=== PATIENT | female | born 1945 | race Caucasian/White ===

== ENCOUNTER → 2016-05-07 | Outpatient (CLI) | payer OTHER, BC ==
[~2016-05-07] MED LIST: BUDESUS NAE; DICL1GEL28 TOP; FLEC100T21 PO; LORA0.5T12 PO; METO1TAB31 PO; PRLSR20 PO; WARF5TAB7 PO
== END | disposition home or self-care (01) ==
LOC: C.MAMM 11:30
PROVIDERS: ATTEND Family Medicine
DX: Z00.00 Encounter for general adult medical examination without abnormal findings (principal); M85.88 Other specified disorders of bone density and structure, other site

== ENCOUNTER → 2016-09-30 | Outpatient (CLI) | payer OTHER, BC ==
[~2016-09-30] MED LIST changes: +APIX1TAB3 PO; +CLB200 PO; +IBUP-1050 PO; +METO-478 PO; -METO1TAB31 PO; +MIRT15TA2 PO; +ONDA8TAB6 PO; +RXC5 PO
--- NOTE | 2016-09-30 10:35 | DIAGNOSTIC IMAGING REPORT ---
THYROID ULTRASOUND HISTORY: NON TOXIC MULTI NODULAR GOITER COMPARISON: Thyroid ultrasound 03/30/2014. FINDINGS: Right lobe: 5.1 x 2.4 x 2.3 cm. There is a 1.7 x 1.3 x 1.1 cm heterogeneous nodule within the interpolar region. This is similar to the prior study. There is also stable 1.1 cm hyperechoic nodule within the lower pole. Left lobe: 6.9 x 5.3 x 3.8 cm. Dominant solid and cystic nodule measures 5.1 x 5.1 x 4.0 cm. Given differences in measuring technique this appears to be similar in size compared to the prior study. There are 2 additional subcentimeter nodules within the upper pole measuring up to 9 mm. Isthmus: 5 mm in thickness. No nodules. IMPRESSION: Multinodular thyroid gland with the dominant nodule within the left thyroid lobe measuring 5.1 cm. These are not significantly changed compared to the 2013 examination. Electronically signed by: Zhou García M.D. 09/30/2016 10:33 AM Dictated Date/Time: 09/30/2016 10:30 AM
== END | disposition home or self-care (01) ==
LOC: C.ULTR 09:23
PROVIDERS: ATTEND Family Medicine
DX: E04.2 Nontoxic multinodular goiter (principal)

== ENCOUNTER → 2017-11-16 | Outpatient (CLI) | payer OTHER, BC ==
[~2017-11-16] MED LIST changes: -BUDESUS NAE; -DICL1GEL28 TOP; -IBUP-1050 PO; -LORA0.5T12 PO; -ONDA8TAB6 PO; -WARF5TAB7 PO
[2017-11-16 10:47] LABS: ALBUMIN 3.7 gm/dl (3.4-5.0); ALKALINE PHOSPHATASE 50 U/L (45-117); ALT/SGPT 19 U/L (12-78); AST/SGOT 16 U/L (15-37); BLOOD UREA NITROGEN 23 mg/dl (7-18); CALCIUM 8.7 mg/dl (8.5-10.1); CARBON DIOXIDE 27 mmol/L (21-32); CREATININE 0.76 mg/dl (0.60-1.20); GLUCOSE 101 mg/dl (70-99); POTASSIUM 4.2 mmol/L (3.5-5.1); SODIUM 140 mmol/L (136-145); TOTAL PROTEIN 6.3 gm/dl (6.4-8.2)
[2017-11-16 10:49] LABS: HEMATOCRIT 42.5 % (37-47); HEMOGLOBIN 14.4 g/dL (12.0-16.0); MEAN CELL VOLUME 99.1 fL (80-100); MEAN CORPUSCULAR HEMOGLOBIN 33.6 pg (25-34); MEAN CORPUSCULAR HGB CONC 33.9 g/dl (32-36); RED CELL DISTRIBUTION WIDTH CV 13.4 % (11.5-14.5); WHITE BLOOD COUNT 3.86 K/uL (4.8-10.8)
[2017-11-16 10:55] LABS: PLATELET COUNT 107 K/uL (130-400)
[2017-11-16 11:07] LABS: BASO % 0.5 %; BASO ABS # 0.02 K/uL (0-0.2); EOS % 1.6 %; EOS ABS # 0.06 K/uL (0-0.5); IG# 0.01 K/uL (0.00-0.02); LYMPH % 24.4 %; LYMPH ABS # 0.94 K/uL (1.2-3.4); MONO ABS # 0.27 K/uL (0.11-0.59); NEUT % 66.2 %; NEUT ABS # 2.56 K/uL (1.4-6.5)
== END | disposition home or self-care (01) ==
LOC: C.LABBC 07:36
PROVIDERS: ATTEND Internal Medicine
DX: Z00.00 Encounter for general adult medical examination without abnormal findings (principal); G47.00 Insomnia, unspecified; K21.0 Gastro-esophageal reflux disease with esophagitis; I48.91 Unspecified atrial fibrillation; I48.92 Unspecified atrial flutter; D69.6 Thrombocytopenia, unspecified

== ENCOUNTER 2024-05-06 11:46 | Observation (INO) ==
--- NOTE | 2024-05-06 12:06 | Emergency Department Note ---
Impression & Plan Stroke-like symptom, Facial droop ED Provider Note NAME: JIMI PATRICK AGE: 79 SEX: F : 1945 ARRIVES VIA: Walk-In INFORMANT: Patient, ED PROVIDER(S): Romel Kraft DO CHIEF COMPLAINT: Strokelike symptoms HPI: The patient is an 79-year-old female who does of a history of atrial fibrillation and takes Eliquis who presented to the emergency department for strokelike symptoms. The patient was last known well yesterday. The patient presented with her daughter who does help with the history. The patient states she has been having some problems with back pain. She did have a fall recently around [place]. She was seen in our facility. She struck her head but also had some musculoskeletal injuries that she was following up with Ortho for. The patient denies having any nausea or vomiting. She denies having any chest pain but does complain of some headache especially on the right side. The patient has been compliant with her outpatient medications. ROS: See above HPI for pertinent positives & negatives. A total of 10 systems reviewed and were otherwise negative. PAST MEDICAL HISTORY: See Below PAST SURGICAL HISTORY: See Below FAMILY HISTORY: See Below SOCIAL HISTORY: See Below HOME MEDICATIONS: See Below ALLERGIES: See Below VITALS: See Below PHYSICAL EXAMINATION: GENERAL: Patient is awake alert in no acute distress patient is resting comfortably and showing no signs of anxiety EYES: The conjunctivae are clear. The pupils are round and reactive. EARS, NOSE, MOUTH AND THROAT: The nose is without any evidence of any deformity. NECK: The neck is nontender and supple. RESPIRATORY: Normal respiratory effort is noted there is no evidence of wheezing rhonchi or rales CARDIOVASCULAR: Regular rate and rhythm noted there no murmurs rubs or gallops normal S1 normal S2. GASTROINTESTINAL: The abdomen is soft. Abdomen is nontender. MUSCULOSKELETAL/EXTREMITIES: There is no evidence of gross deformity full range of motion is noted in the hips and shoulders. SKIN: The skin is warm and dry. Trace pedal edema was noted bilaterally. NEUROLOGIC: Patient is awake alert and oriented x3 there is a right-sided facial droop with forehead sparing. Security Clerk strength was symmetric. The patient is able to hold each leg off the bed for greater than 5 seconds. MEDICAL DECISION MAKING: The patient is an 79-year-old female who presented to the emergency department for an evaluation of strokelike symptoms. The patient's daughter brought her to the emergency department after noticing she seemed to be off as well as had a new right sided facial droop. The patient was awake and alert for my evaluation. She did have some periods where she seems a little bit confused but ultimately appeared neurologically intact with the exception of a right-sided facial droop with forehead involvement. Given the patient's age and past medical history further laboratory and radiographic studies were obtained. No obvious large vessel occlusion or abnormality on plain CT was noted that would explain the patient's symptoms. Given that she has forehead sparing I [facility] She would likely require inpatient workup and further evaluation to determine the cause of the symptoms. Certainly if she went on to have a full facial droop with forehead involvement this could explain the presentation and could be more related to a Mccloud's palsy. Triage Nursing notes reviewed. Prior medical records reviewed Vital Signs: reviewed and remarkable for no significant abnormalities Differential diagnosis: Infection, dehydration, metabolic abnormality, hypo/hyperglycemia, electrolyte disturbance, anemia, hypoxia, cardiac sources, intracerebral event, toxicologic, neurologic, as well as other pathologies. ER treatment provided: See below Diagnostics interpreted by me: ECG: EKG was obtained in the emergency department. My interpretation is sinus rhythm at 88 bpm. First-degree AV block was noted. Nonspecific ST depressions were noted. This was compared to a tracing from January 21, 2024. No changes were noted. Cardiac Monitoring: An order was placed for continuous cardiac monitoring. The monitor shows a rate of 82 bpm with sinus rhythm. Laboratory studies: As stated above and show below. Imaging studies: See below. Radiographic imaging was reviewed by myself Consultation(s): Dr. Bravo [facility] the patient. Past Med/Surg History Problem List (Updated 05/06/24 @ 17:46 by Romel Kraft DO) Facial droop (Acute) Stroke-like symptom (Acute) Recurrent falls Elevated bilirubin Stroke-like symptoms Fracture of metatarsal of right foot, closed (Acute) Fracture of triquetral bone of right wrist (Acute) Hypertrophic toenail Bilateral ankle pain Grief reaction Anxiety Painter disease Hypertension Vitamin D deficiency Insomnia Thrombocytopenia Enlarged thyroid Thyroid Nodule PAF (paroxysmal atrial fibrillation) Diastolic dysfunction Degenerative arthritis of right knee Surgical History History of repair of rotator cuff History of knee replacement History of foot surgery History of cataract surgery Family History Father Myocardial infarction Mother Alcohol abuse Father Cardiac disorder Myocardial infarction Family/Other Breast cancer Heart disease Denies family history of Ovarian cancer Prostate cancer Colorectal cancer Social History Smoking Status: Former smoker Tobacco Type: Cigarettes Age Started Using Tobacco: 15; Age Quit Using Tobacco: 35; packs per day: 0.5; Cigarettes Per Day: 10; Second Hand Exposure: No; Do You Dip or Chew Tobacco: No; Hx Alcohol Use: Yes Alcohol Intake Frequency: 4 or More x per/Week Hx Substance Use: No Preferred Language: Cypriot Visual Impairment: No Limitations Hearing Ability: Normal marital status: / Current Living Situation: Alone Current Living Situation Comment: [place] current occupational status: retired current occupation: was a homemaker Feels Safe at Home: Yes Childhood Exposure to Second-Hand Smoke: Yes Diet: regular Dental Care, Regularly: Yes Physical Activity Frequency: Does not Exercise Seatbelt Use: always Sunscreen Use: Yes Allergies Allergies Allergy/AdvReac Type Severity Reaction Status Date / Time Penicillins Allergy Mild HIVES Verified 02/01/24 11:08 Home Meds Home Medications Medication Instructions Recorded Confirmed cholecalciferol (vitamin D3) 50 2,000 unit PO DAILY 05/23/20 05/06/24 mcg (2,000 unit) capsule lorazepam 0.5 mg tablet 0.5 mg PO DAILY PRN anxiety 01/06/24 05/06/24 flecainide 100 mg tablet 100 mg PO BID 05/06/24 05/06/24 metoprolol succinate 25 mg 12.5 mg PO UD 05/06/24 05/06/24 tablet,extended release 24 hr (Toprol XL) oxycodone-acetaminophen 5 mg-325 1 tab PO UD PRN pain 05/06/24 05/06/24 mg tablet (Percocet) sertraline 25 mg tablet 25 mg PO DAILY 05/06/24 05/06/24 Previous Rx's Medication Instructions Recorded omeprazole 20 mg capsule,delayed 20 mg PO DAILY #90 caps 11/06/20 release apixaban 5 mg tablet (Eliquis) 5 mg PO BID #180 tabs 05/25/22 Results & Data (ED) Vital Signs Vital Signs - 24 hr 05/06/24 11:52 05/06/24 12:19 05/06/24 12:55 Pulse Rate 92 H 83 Pulse Rate from SpO2 Sensor Pulse Strength Normal Respiratory Rate 16 Respiratory Effort / Characteristics Non-Labored Spontaneous Respiratory Depth Normal Respiratory Pattern Regular Blood Pressure 182/82 H Blood Pressure Mean 95 Blood Pressure Position Sitting Pulse Oximetry 99 Oxygen Delivery Method Room Air Sepsis Recent Fever Within 48 Hours No Sepsis New/Unexplained Change in Mental Status No Sepsis Action Taken by Nursing No Action Required 05/06/24 13:00 05/06/24 13:03 05/06/24 13:03 Pulse Rate 81 87 Pulse Rate from SpO2 Sensor 81 Pulse Strength Respiratory Rate 20 19 Respiratory Effort / Characteristics Respiratory Depth Respiratory Pattern Blood Pressure 146/74 H Blood Pressure Mean 106 Blood Pressure Position Pulse Oximetry 98 Oxygen Delivery Method Sepsis Recent Fever Within 48 Hours Sepsis New/Unexplained Change in Mental Status Sepsis Action Taken by Nursing 05/06/24 13:30 05/06/24 13:30 Pulse Rate 82 Pulse Rate from SpO2 Sensor 83 Pulse Strength Respiratory Rate 14 Respiratory Effort / Characteristics Respiratory Depth Respiratory Pattern Blood Pressure 131/80 Blood Pressure Mean 99 Blood Pressure Position Pulse Oximetry 97 Oxygen Delivery Method Sepsis Recent Fever Within 48 Hours Sepsis New/Unexplained Change in Mental Status Sepsis Action Taken by [facility] Medications Current Medication List: was personally reviewed by me Laboratory Data Attestation: I reviewed the patient's lab results. 05/06/24 12:05 05/06/24 12:05 Lab Results 05/06/24 05/06/24 05/06/24 Range/Units 12:01 12:05 12:09 WBC 8.27 (4.8-10.8) K/ul RBC 4.53 (4.20-5.40) M/uL Hgb 14.3 (12.0-16.0) g/dl POC Hgb 14.3 (12.0-16.0) g/dl Hct 42.2 (37.0-47.0) % POC Hct 42 (37-47) % MCV 93.2 (80.0-100.0) fL MCH 31.6 (25.0-34.0) pg MCHC 33.9 (32.0-36.0) g/dL RDW Std Deviation 44.4 (36.4-46.3) fL RDW Coeff of Karla 13.0 (11.5-14.5) % Plt Count 160 (130-400) K/uL MPV 11.8 (9.4-12.4) fL Immature Gran % (Auto) 0.4 % Neut % (Auto) 77.6 % Lymph % (Auto) 11.9 % [place] % (Auto) 9.3 % Eos % (Auto) 0.6 % Baso % (Auto) 0.2 % Neut # (Auto) 6.42 (1.40-6.50) K/uL Lymph # (Auto) 0.98 L (1.20-3.40) K/uL [place] # (Auto) 0.77 H (0.11-0.59) K/uL Eos # (Auto) 0.05 (0.00-0.50) K/uL Baso # (Auto) 0.02 (0.00-0.20) K/uL Immature Gran # (Auto) 0.03 (0.01-0.20) K/uL PT 11.0 (9.0-12.0) Seconds INR 1.0 (0.9-1.1) APTT 30 (21-31) Seconds PTT Ratio 1.1 POC Sodium 140 (135-144) mmol/L Sodium 138 (136-145) mmol/L POC Potassium 3.8 (3.3-5.0) mmol/L Potassium 3.8 (3.5-5.1) mmol/L POC Chloride 103 (101-112) mmol/L Chloride 104 (98-107) mmol/L Carbon Dioxide 26 (21-32) mmol/L POC Total CO2 23 L (24-31) mmol/L Anion Gap 8 (3-11) POC Anion Gap 19.0 (16-25) mmol/L POC BUN 19 H (7-18) mg/dl BUN 19 (6-23) mg/dl Creatinine 0.69 (0.6-1.2) mg/dl POC Creatinine 0.8 (0.6-1.3) mg/dl Est Cr Clr Drug Dosing 61.8 ml/min eGFR 87.68 BUN/Creatinine Ratio 27.5 H (10-20) Glucose 95 (70-99(Fasting)) mg/dl POC Glucose 87 (70-99) mg/dl POC Glucose (other) 94 (70-99) mg/dl Calcium 9.8 (8.6-10.3) mg/dl POC Ioniz Calcium Michael 1.19 (1.12-1.32) mmol/l Magnesium 1.9 (1.7-2.4) mg/dl Total Bilirubin 3.2 H (0.2-1.0) mg/dl AST 11 L (13-39) U/L ALT 7 (7-52) U/L Alkaline Phosphatase 152 H (34-104) U/L Troponin I High Sens 4.3 (0-14) pg/ml Total Protein 6.6 (6.0-8.3) gm/dl Albumin 4.4 (3.4-5.0) gm/dl Globulin 2.2 L (2.5-4.0) gm/dl Albumin/Globulin Ratio 2.0 (0.9-2) Administered Medications Discontinued Medications Ioversol (Optiray 320 125ml) 112 ml IV ONCE ONE Stop: 05/06/24 12:45 Last Admin: 05/06/24 12:44 Dose: 112 ml Documented By: CHICO Lorazepam (Lorazepam 2 Mg/1 Ml Vial) 0.5 mg IV ONE PRN PRN Reason: Pre-MRI anxiety Last Admin: 05/06/24 15:34 Dose: 0.5 mg Documented By: TISH Imaging Data Attestation: I personally reviewed and interpreted this imaging study as follows: My Impression: CT of the brain was obtained in the emergency department. My interpretation is no intracranial hemorrhage or mass effect, final report below. 1 view chest x-ray was obtained in the emergency department. My interpretation is no free air or definite filtrate, final report below Radiologist's Impression: Chest X-Ray 05/06/24 12:04 EXAM: Radiograph of the Chest 1 View INDICATION: Stroke symptoms. TECHNIQUE: Frontal view of the chest. COMPARISON: 02/02/2017 and 01/21/2024 FINDINGS: Lungs and pleural spaces: No consolidation or pulmonary edema. No pleural effusion or pneumothorax. Heart: Stable prominent cardiac shadow accentuated by technique. Mediastinum: Normal contour. Bones/joints: Degenerative changes noted throughout the spine and both shoulders. No lytic or blastic lesions noted. Soft tissues: No abnormality noted. No radiopaque foreign body noted. Vasculature: Stable ectatic aorta. Upper abdomen: No abnormality noted. IMPRESSION: No acute cardiopulmonary disease. ACT 112: Negative or not required by law. Electronically signed by Polina Mustafa 05-06-2024 12:[address] 05/06/24 12:04 EXAM: CT Head Without Intravenous Contrast INDICATION: Unspecified neurologic deficit TECHNIQUE: Axial computed tomography images of the head/brain without intravenous contrast. Sagittal and/or coronal reformats are provided. Sagittal and coronal reformatted images were created and reviewed. This CT exam was performed using one or more of the following dose reduction techniques: automated exposure control, adjustment of the mA and/or kV according to patient size, and/or use of iterative reconstruction technique. COMPARISON: 04/09/2024 FINDINGS: Limitations: None. Brain and extra-axial spaces: There is age appropriate cortical atrophy and chronic ischemic periventricular white matter hypodensity. No acute infarct, hemorrhage or mass noted. Bones/joints: No acute changes. Soft tissues: No significant abnormality noted. Vasculature: No acute abnormality noted. Sinuses: There is mild chronic mucosal thickening of the right maxillary and sphenoid sinuses. No sinus fluid. Mastoid air cells: No mastoid effusion. Orbits: No significant abnormality noted. IMPRESSION: Cerebral atrophy. No acute changes. ACT 112: Negative or not required by law. Electronically signed by Polina Mustafa 05-06-2024 13:11 PM Head CTA 05/06/24 12:04 EXAM: CT Angiography Head and Neck With Intravenous Contrast INDICATION: Specified neurologic deficit TECHNIQUE: [facility] [place]/head and neck CT angiography protocol performed with intravenous contrast. Sagittal and coronal reformatted images were created and reviewed. This CT exam was performed using one or more of the following dose reduction techniques: automated exposure control, adjustment of the mA and/or kV according to patient size, and/or use of iterative reconstruction technique. MIP reconstructed images were created and reviewed. CONTRAST: 112ml of Optiray 320 was administered intravenously. COMPARISON: None. FINDINGS: HEAD: Right anterior cerebral artery: No abnormality noted. No occlusion or significant stenosis. Anterior communicating artery is present. No aneurysm. Right middle cerebral artery: No abnormality noted. No occlusion or significant stenosis. No aneurysm. Right posterior cerebral artery: No abnormality noted. No occlusion or significant stenosis. No aneurysm. Right intracranial internal carotid artery: No abnormality noted. No significant stenosis. No dissection or occlusion. Right intracranial vertebral artery: No abnormality noted. No significant stenosis. No dissection or occlusion. Left anterior cerebral artery: No abnormality noted. No occlusion or significant stenosis. No aneurysm. Left middle cerebral artery: No abnormality noted. No occlusion or significant stenosis. No aneurysm. Left posterior cerebral artery: No abnormality noted. No occlusion or significant stenosis. No aneurysm. Left intracranial internal carotid artery: No abnormality noted. No significant stenosis. No dissection or occlusion. Left intracranial vertebral artery: No abnormality noted. No significant stenosis. No dissection or occlusion. Basilar artery: No abnormality noted. No occlusion or significant stenosis. No aneurysm. Other vasculature: Patent dural venous sinuses. No vascular malformation. NECK: Right common carotid artery: No abnormality noted. No significant stenosis. No dissection or occlusion. Right extracranial internal carotid artery: No abnormality noted. No significant stenosis. No dissection or occlusion. Right external carotid artery: No abnormality noted. No occlusion. Right extracranial vertebral artery: No abnormality noted. No significant stenosis. No dissection or occlusion. Left common carotid artery: No abnormality noted. No significant stenosis. No dissection or occlusion. Left extracranial internal carotid artery: Minimal calcific plaque at the bulb. No significant stenosis. No dissection or occlusion. Left external carotid artery: No abnormality noted. No occlusion. Left extracranial vertebral artery: No abnormality noted. No significant stenosis. No dissection or occlusion. Trachea: The trachea is significantly shifted to the right and is patent. Thyroid: There is a large substernal left thyroid mass measuring 5.0 x 5.1 x 5.4 cm. Smaller bilateral thyroid nodules present. Lung apices: No significant abnormality noted. HEAD and NECK: Bones/joints: Degenerative changes noted throughout the spine. No acute osseous abnormality seen. Soft tissues: No abnormality noted. CAROTID STENOSIS REFERENCE USING NASCET CRITERIA: % ICA stenosis = (1 - narrowest ICA diameter/diameter of distal cervical ICA) x 100. Mild - <50% stenosis. Moderate - 50-69% stenosis. Severe - 70-94% stenosis. Near occlusion - 95-99% stenosis. Occluded - 100% stenosis. IMPRESSION: 1. No significant angiographic abnormality in the head or neck. 2. Multinodular thyroid with a dominant 5.4 cm left thyroid mass significantly deviating the trachea to the right. ACT 112: Negative or not required by law. Electronically signed by Polina Mustafa 05-06-2024 13:11 PM Neck CTA 05/06/24 12:04 EXAM: CT Angiography Head and Neck With Intravenous Contrast INDICATION: Specified neurologic deficit TECHNIQUE: [facility] [place]/head and neck CT angiography protocol performed with intravenous contrast. Sagittal and coronal reformatted images were created and reviewed. This CT exam was performed using one or more of the following dose reduction techniques: automated exposure control, adjustment of the mA and/or kV according to patient size, and/or use of iterative reconstruction technique. MIP reconstructed images were created and reviewed. CONTRAST: 112ml of Optiray 320 was administered intravenously. COMPARISON: None. FINDINGS: HEAD: Right anterior cerebral artery: No abnormality noted. No occlusion or significant stenosis. Anterior communicating artery is present. No aneurysm. Right middle cerebral artery: No abnormality noted. No occlusion or significant stenosis. No aneurysm. Right posterior cerebral artery: No abnormality noted. No occlusion or significant stenosis. No aneurysm. Right intracranial internal carotid artery: No abnormality noted. No significant stenosis. No dissection or occlusion. Right intracranial vertebral artery: No abnormality noted. No significant stenosis. No dissection or occlusion. Left anterior cerebral artery: No abnormality noted. No occlusion or significant stenosis. No aneurysm. Left middle cerebral artery: No abnormality noted. No occlusion or significant stenosis. No aneurysm. Left posterior cerebral artery: No abnormality noted. No occlusion or significant stenosis. No aneurysm. Left intracranial internal carotid artery: No abnormality noted. No significant stenosis. No dissection or occlusion. Left intracranial vertebral artery: No abnormality noted. No significant stenosis. No dissection or occlusion. Basilar artery: No abnormality noted. No occlusion or significant stenosis. No aneurysm. Other vasculature: Patent dural venous sinuses. No vascular malformation. NECK: Right common carotid artery: No abnormality noted. No significant stenosis. No dissection or occlusion. Right extracranial internal carotid artery: No abnormality noted. No significant stenosis. No dissection or occlusion. Right external carotid artery: No abnormality noted. No occlusion. Right extracranial vertebral artery: No abnormality noted. No significant stenosis. No dissection or occlusion. Left common carotid artery: No abnormality noted. No significant stenosis. No dissection or occlusion. Left extracranial internal carotid artery: Minimal calcific plaque at the bulb. No significant stenosis. No dissection or occlusion. Left external carotid artery: No abnormality noted. No occlusion. Left extracranial vertebral artery: No abnormality noted. No significant stenosis. No dissection or occlusion. Trachea: The trachea is significantly shifted to the right and is patent. Thyroid: There is a large substernal left thyroid mass measuring 5.0 x 5.1 x 5.4 cm. Smaller bilateral thyroid nodules present. Lung apices: No significant abnormality noted. HEAD and NECK: Bones/joints: Degenerative changes noted throughout the spine. No acute osseous abnormality seen. Soft tissues: No abnormality noted. CAROTID STENOSIS REFERENCE USING NASCET CRITERIA: % ICA stenosis = (1 - narrowest ICA diameter/diameter of distal cervical ICA) x 100. Mild - <50% stenosis. Moderate - 50-69% stenosis. Severe - 70-94% stenosis. Near occlusion - 95-99% stenosis. Occluded - 100% stenosis. IMPRESSION: 1. No significant angiographic abnormality in the head or neck. 2. Multinodular thyroid with a dominant 5.4 cm left thyroid mass significantly deviating the trachea to the right. ACT 112: Negative or not required by law. Electronically signed by Polina Mustafa 05-06-2024 13:11 PM Brain MRI 05/06/24 14:38 MRI of the brain performed without IV contrast History: Confusion Comparison: Same-day CTA Technique: Sagittal T1-weighted and axial T2-weighted, T2/FLAIR and diffusion-weighted with ADC map images of the brain were obtained without IV contrast. Findings: No evidence for intracranial mass lesion, mass-effect, midline shift, or abnormal extra-axial fluid collection. Moderate to marked generalized cerebral atrophy. Minimal high signal intensity foci in the white matter on T2/FLAIR consistent with chronic small vessel ischemic disease. No abnormally reduced diffusion or evidence for acute infarct. Normal intravascular flow voids. Bilateral pseudophakia. Small fluid in the right mastoid air cells. Impression: Age-related changes without acute intracranial pathology Electronically signed by Ranulfo Casas 05-06-2024 4:52 PM Discharge Plan Visit Data Chief Complaint: TIA Symptoms Stated Complaint: CONFUSION, LOW BACK PAIN, NUMBNESS IN FINGERS ED Provider: Romel Kraft Discharge Problem: Stroke-like symptom, Facial droop Patient Disposition: Admitted As Inpatient Discharge Instructions Interventions: ED Discharge Assessment Last Done: 05/06/24 15:22
[2024-05-06 12:20] LABS: iSTAT Creatinine 0.8 mg/dl (0.6-1.3); iSTAT Hemoglobin 14.3 g/dl (12.0-16.0); iSTAT Ionized Calcium 1.19 mmol/l (1.12-1.32); iSTAT Potassium 3.8 mmol/L (3.3-5.0)
[2024-05-06 12:25] LABS: Basophils # (auto) 0.02 K/uL (0.00-0.20); Basophils % (auto) 0.2 %; Eosinophils # (auto) 0.05 K/uL (0.00-0.50); Eosinophils % (auto) 0.6 %; Hematocrit (blood only) 42.2 % (37.0-47.0); Hemoglobin 14.3 g/dl (12.0-16.0); Immature Granulocytes # (auto) 0.03 K/uL (0.01-0.20); Immature Granulocytes % (auto) 0.4 %; Lymphocytes # (auto) 0.98 K/uL (1.20-3.40); Lymphocytes % (auto) 11.9 %; Mean Corpuscular Hemoglobin 31.6 pg (25.0-34.0); Mean Corpuscular Hgb Conc 33.9 g/dL (32.0-36.0); Mean Corpuscular Volume 93.2 fL (80.0-100.0); Mean Platelet Volume 11.8 fL (9.4-12.4); Monocytes # (auto) 0.77 K/uL (0.11-0.59); Monocytes % (auto) 9.3 %; Neutrophils # (auto) 6.42 K/uL (1.40-6.50); Neutrophils % (auto) 77.6 %; Platelet Count 160 K/uL (130-400); RDW Standard Deviation 44.4 fL (36.4-46.3); Red Blood Count 4.53 M/uL (4.20-5.40); White Blood Count 8.27 K/ul (4.8-10.8)
--- NOTE | 2024-05-06 12:37 | XRay Report ---
EXAM: Radiograph of the Chest 1 View INDICATION: Stroke symptoms. TECHNIQUE: Frontal view of the chest. COMPARISON: 02/02/2017 and 01/21/2024 FINDINGS: Lungs and pleural spaces: No consolidation or pulmonary edema. No pleural effusion or pneumothorax. Heart: Stable prominent cardiac shadow accentuated by technique. Mediastinum: Normal contour. Bones/joints: Degenerative changes noted throughout the spine and both shoulders. No lytic or blastic lesions noted. Soft tissues: No abnormality noted. No radiopaque foreign body noted. Vasculature: Stable ectatic aorta. Upper abdomen: No abnormality noted. IMPRESSION: No acute cardiopulmonary disease. ACT 112: Negative or not required by law. Electronically signed by Polina Mustafa 05-06-2024 12:36 PM
[2024-05-06 12:43] LABS: Albumin Level 4.4 gm/dl (3.4-5.0); BUN Creatinine Ratio 27.5 (10-20); Bilirubin,Total 3.2 mg/dl (0.2-1.0); Calcium 9.8 mg/dl (8.6-10.3); Creatinine Clr Calc Pharmacy 61.8 ml/min; Globulin 2.2 gm/dl (2.5-4.0); Magnesium 1.9 mg/dl (1.7-2.4); Potassium 3.8 mmol/L (3.5-5.1); Total Protein 6.6 gm/dl (6.0-8.3)
[2024-05-06] MEDS: OPTIRAY 320 125ml IV ONE (12:44)
[2024-05-06 12:49] LABS: Troponin I High Sensitivity 4.3 pg/ml (0-14)
[2024-05-06 12:54] LABS: Partial Thromboplastin Ratio 1.1; Partial Thromboplastin Time 30 Seconds (21-31)
--- NOTE | 2024-05-06 13:12 | CT Scan Report ---
EXAM: CT Angiography Head and Neck With Intravenous Contrast INDICATION: Specified neurologic deficit TECHNIQUE: [facility]/head and neck CT angiography protocol performed with intravenous contrast. Sagittal and coronal reformatted images were created and reviewed. This CT exam was performed using one or more of the following dose reduction techniques: automated exposure control, adjustment of the mA and/or kV according to patient size, and/or use of iterative reconstruction technique. MIP reconstructed images were created and reviewed. CONTRAST: 112ml of Optiray 320 was administered intravenously. COMPARISON: None. FINDINGS: HEAD: Right anterior cerebral artery: No abnormality noted. No occlusion or significant stenosis. Anterior communicating artery is present. No aneurysm. Right middle cerebral artery: No abnormality noted. No occlusion or significant stenosis. No aneurysm. Right posterior cerebral artery: No abnormality noted. No occlusion or significant stenosis. No aneurysm. Right intracranial internal carotid artery: No abnormality noted. No significant stenosis. No dissection or occlusion. Right intracranial vertebral artery: No abnormality noted. No significant stenosis. No dissection or occlusion. Left anterior cerebral artery: No abnormality noted. No occlusion or significant stenosis. No aneurysm. Left middle cerebral artery: No abnormality noted. No occlusion or significant stenosis. No aneurysm. Left posterior cerebral artery: No abnormality noted. No occlusion or significant stenosis. No aneurysm. Left intracranial internal carotid artery: No abnormality noted. No significant stenosis. No dissection or occlusion. Left intracranial vertebral artery: No abnormality noted. No significant stenosis. No dissection or occlusion. Basilar artery: No abnormality noted. No occlusion or significant stenosis. No aneurysm. Other vasculature: Patent dural venous sinuses. No vascular malformation. NECK: Right common carotid artery: No abnormality noted. No significant stenosis. No dissection or occlusion. Right extracranial internal carotid artery: No abnormality noted. No significant stenosis. No dissection or occlusion. Right external carotid artery: No abnormality noted. No occlusion. Right extracranial vertebral artery: No abnormality noted. No significant stenosis. No dissection or occlusion. Left common carotid artery: No abnormality noted. No significant stenosis. No dissection or occlusion. Left extracranial internal carotid artery: Minimal calcific plaque at the bulb. No significant stenosis. No dissection or occlusion. Left external carotid artery: No abnormality noted. No occlusion. Left extracranial vertebral artery: No abnormality noted. No significant stenosis. No dissection or occlusion. Trachea: The trachea is significantly shifted to the right and is patent. Thyroid: There is a large substernal left thyroid mass measuring 5.0 x 5.1 x 5.4 cm. Smaller bilateral thyroid nodules present. Lung apices: No significant abnormality noted. HEAD and NECK: Bones/joints: Degenerative changes noted throughout the spine. No acute osseous abnormality seen. Soft tissues: No abnormality noted. CAROTID STENOSIS REFERENCE USING NASCET CRITERIA: % ICA stenosis = (1 - narrowest ICA diameter/diameter of distal cervical ICA) x 100. Mild - <50% stenosis. Moderate - 50-69% stenosis. Severe - 70-94% stenosis. Near occlusion - 95-99% stenosis. Occluded - 100% stenosis. IMPRESSION: 1. No significant angiographic abnormality in the head or neck. 2. Multinodular thyroid with a dominant 5.4 cm left thyroid mass significantly deviating the trachea to the right. ACT 112: Negative or not required by law. Electronically signed by Polina Mustafa 05-06-2024 13:11 PM
--- NOTE | 2024-05-06 13:12 | CT Scan Report ---
EXAM: CT Head Without Intravenous Contrast INDICATION: Unspecified neurologic deficit TECHNIQUE: Axial computed tomography images of the head/brain without intravenous contrast. Sagittal and/or coronal reformats are provided. Sagittal and coronal reformatted images were created and reviewed. This CT exam was performed using one or more of the following dose reduction techniques: automated exposure control, adjustment of the mA and/or kV according to patient size, and/or use of iterative reconstruction technique. COMPARISON: 04/09/2024 FINDINGS: Limitations: None. Brain and extra-axial spaces: There is age appropriate cortical atrophy and chronic ischemic periventricular white matter hypodensity. No acute infarct, hemorrhage or mass noted. Bones/joints: No acute changes. Soft tissues: No significant abnormality noted. Vasculature: No acute abnormality noted. Sinuses: There is mild chronic mucosal thickening of the right maxillary and sphenoid sinuses. No sinus fluid. Mastoid air cells: No mastoid effusion. Orbits: No significant abnormality noted. IMPRESSION: Cerebral atrophy. No acute changes. ACT 112: Negative or not required by law. Electronically signed by Polina Mustafa 05-06-2024 13:11 PM
--- NOTE | 2024-05-06 13:48 | History & Physical Report ---
Date of Service May 06, 2024 Assessment & Plan (1) Stroke-like symptoms: Plan: Misty is an 79-year-old female with PMH of HTN, Gilbert's disease, thrombocytopenia, and paroxysmal atrial fibrillation (on Eliquis). She presented on 05/06 for extreme confusion upon waking around 0830. Patient's daughter (Cindy) is at bedside and confirms that this was an acute change from her cognitive baseline. Patient + patient's daughter report acute confusion, incoherent thought processes, and word finding difficulty upon waking the morning of 05/06 No prior history of TIA/CVA Independent living at [facility] Unclear last known well; ? 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 pending dysphagia screen Neurochecks q4h Speech therapy consult appreciated Neurology consult pending brain MRI A.m. CBC, CMP, A1c, fasting lipid panel (2) Hypertension: Plan: Permissive hypertension in the setting of strokelike symptoms Labetalol 5 mg IV on-call for SBP >220 or DBP >120 (3) PAF (paroxysmal atrial fibrillation): Plan: Rate controlled Plan to restart metoprolol on the morning of 05/07 Continue flecainide Hold Eliquis pending brain MRI (4) Elevated bilirubin: Plan: Patient reports that this is chronically elevated; elevated bilirubin at 3.2 Trend CMP (5) Recurrent falls: Plan: Most recent fall on 04/09/2024; on Eliquis Ambulates with a rollator at baseline PT/OT evaluations appreciated Fall precautions (6) Anxiety: Plan: Patient reports that she takes lorazepam daily; confirmed prescription in PDMP Will temporarily hold daily lorazepam in the setting of acute confusion Per patient request, will put on for lorazepam 0.5 mg IV x 1 for pre-MRI anxiety Continue sertraline Plan Disposition: Admit to PCU telemetry Full code N.p.o. for now, then advance to regular diet once patient passes dysphagia screen VTE PPx: Hold Eliquis pending brain MRI History of Present Illness Chief Complaint: CVA/TIA symptoms Primary Care Provider: Francisca Jay is an 79-year-old female with PMH of HTN, Gilbert's disease, thrombocytopenia, and paroxysmal atrial fibrillation (on Eliquis). She presented on 05/06 for extreme confusion upon waking around 0830. Patient's daughter (Cindy) is at bedside and confirms that this was an acute change from her cognitive baseline. Patient reports that she felt "out to lunch" this morning and was having trouble communicating and speaking. Patient lives at [facility]. She had word finding difficulty this morning, and daughter reports that at 1 point she could not find her boot, even though it was on her foot. Daughter also reports that she confused her shoe for a rollator, and asked to be put on the toilet to go to the bathroom when she was on the toilet. Daughter reports that her symptoms began to improve on their way to the ER. While triage reported a right-sided facial droop, this was not appreciated by daughter or patient. Patient denies slurred speech, facial droop, or unilateral deficits. She does endorse word finding difficulty and vision changes. Initially, in regard to vision changes, patient endorsed "double vision". When asked if this was [id number] diplopia, patient reports she is unsure what sort of double vision she was having this morning, as she was very confused. Patient wears reading glasses as needed. No prior history of strokes. She does have ambulatory dysfunction at baseline, and ambulates with a rollator at home. She sustained 2 falls recently, 1 in January, and 1 on 04/09 which required an ER visit; patient hit her head on her birthday. No sick contacts. Patient took her regular morning medicine today; she manages at home as at home. Only recent change was that she was started on Zoloft recently. Additionally, patient endorses lumbar spine pain x 3 days. Patient has 2 cats (Constantin and Adriana); when asked, initially she forgot their names. Patient did sustain a fall last week (on blood thinners). Patient's BP in the room is 173/87 at time of admission consult; vitals otherwise stable. ED course: ROS: Patient endorses incoherent thought processes, expressive aphasia, headache, potential diplopia, sinus congestion, and numbness in the fingers. Patient denies fever, chills, night-sweats, dizziness, lightheadedness, photophobia, neck pain/stiffness, slurred speech, facial droop, unilateral deficits, tinnitus, chest pain, chest palpitations, SOB, cough, abdominal pain, N/V/D, burning with urination, blood in the urine/stool, or numbness/tingling in the legs. Allergies Allergy/AdvReac Type Severity Reaction Status Date / Time Penicillins Allergy Mild HIVES Verified 02/01/24 11:08 Home Medications Medication Instructions Recorded Confirmed Type cholecalciferol (vitamin D3) 50 2,000 unit PO DAILY 05/23/20 05/06/24 History mcg (2,000 unit) capsule omeprazole 20 mg capsule,delayed 20 mg PO DAILY #90 caps 11/06/20 05/06/24 Rx release apixaban 5 mg tablet (Eliquis) 5 mg PO BID #180 tabs 05/25/22 05/06/24 Rx lorazepam 0.5 mg tablet 0.5 mg PO DAILY PRN anxiety 01/06/24 05/06/24 History flecainide 100 mg tablet 100 mg PO BID 05/06/24 05/06/24 History metoprolol succinate 25 mg 12.5 mg PO UD 05/06/24 05/06/24 History tablet,extended release 24 hr (Toprol XL) oxycodone-acetaminophen 5 mg-325 1 tab PO UD PRN pain 05/06/24 05/06/24 History mg tablet (Percocet) sertraline 25 mg tablet 25 mg PO DAILY 05/06/24 05/06/24 History Past Med/Surg History Problem List (Updated 05/06/24 @ 14:57 by Zhou Deshpande PA-C) Recurrent falls Elevated bilirubin Stroke-like symptoms Fracture of metatarsal of right foot, closed (Acute) Fracture of triquetral bone of right wrist (Acute) Hypertrophic toenail Bilateral ankle pain Grief reaction Anxiety [place] disease Hypertension Vitamin D deficiency Insomnia Thrombocytopenia Enlarged thyroid Thyroid Nodule PAF (paroxysmal atrial fibrillation) Diastolic dysfunction Degenerative arthritis of right knee Surgical History History of repair of rotator cuff History of knee replacement History of foot surgery History of cataract surgery Family History Father Myocardial infarction Mother Alcohol abuse Father Cardiac disorder Myocardial infarction Family/Other Breast cancer Heart disease Denies family history of Ovarian cancer Prostate cancer Colorectal cancer Social History Smoking Status: Former smoker Tobacco Type: Cigarettes Age Started Using Tobacco: 15; Age Quit Using Tobacco: 35; packs per day: 0.5; Cigarettes Per Day: 10; Second Hand Exposure: No; Do You Dip or Chew Tobacco: No; Hx Alcohol Use: Yes Alcohol Intake Frequency: 4 or More x per/Week Hx Substance Use: No Preferred Language: Georgian Visual Impairment: No Limitations Hearing Ability: Normal marital status: / Current Living Situation: Alone Current Living Situation Comment: Francisca current occupational status: retired current occupation: was a homemaker Feels Safe at Home: Yes Childhood Exposure to Second-Hand Smoke: Yes Diet: regular Dental Care, Regularly: Yes Physical Activity Frequency: Does not Exercise Seatbelt Use: always Sunscreen Use: Yes Review of Systems Review of Systems: See HPI above Physical Exam Physical Exam: General: Patient appears anxious; daughter at bedside; non-toxic appearing; frail appearing; cooperative; SpO2 97% on RA HEENT: normocephalic, atraumatic; no scleral icterus; PERRLA w/ EOMs intact; vision intact; hard of hearing; patient reports sensation is intact and symmetric in the face assessed at 3 dermatomes; patient is able to smile, frown, and lift eyebrows without unilateral deficits; patient demonstrates ability to protrude and wiggle tongue without unilateral deficits Neck: supple; no lymphadenopathy; trachea midline Skin: warm, dry without signs of tenting; no cyanosis; no rashes, bruising, lesions, or erythema noted CV: chest wall NTP; RRR; S1/S2 normal; no murmurs/rubs/gallops; pulses intact and symmetric at radial, DP, and PT Lungs: no acute respiratory distress; symmetrical chest wall expansion; clear breath sounds across all lung de [place] gar[place] w/o adventitious sounds; no wheezing ABD: Soft, NTP; BS present; no rebound/guarding; no distention MSK: no tics or fasciculations; no edema noted in the LEs b/l, nonerythematous; 5/5 recovery auditor strength bilaterally; patient demonstrates ability to wiggle toes/plantarflex/dorsiflex without unilateral deficits; patient exhibits 4/5 strength when lifting legs from the bed while lying supine Neuro: A&Ox3; however, patient does exhibit expressive aphasia bedside, often pausing for word finding difficulty; per daughter, incoherent thought processes earlier in the day; fluent speech; no facial droop appreciated; patient reports sensation intact and symmetric in the lower extremities and upper extremities bilaterally Results & Data Results & Data Vital Signs (Past 12 Hours) Vital Signs Pulse Resp BP Pulse Ox O2 Del Method 05/06/24 13:30 131/80 05/06/24 13:30 82 14 97 05/06/24 13:03 146/74 H 05/06/24 13:03 87 19 05/06/24 13:00 81 20 98 05/06/24 12:55 182/82 H 05/06/24 12:19 83 05/06/24 11:52 92 H 16 99 Room Air Laboratory Results Abnormal lab results 05/06/24 05/06/24 Range/Units 12:05 12:09 Lymph # (Auto) 0.98 L (1.20-3.40) K/uL [place] # (Auto) 0.77 H (0.11-0.59) K/uL POC Total CO2 23 L (24-31) mmol/L POC BUN 19 H (7-18) mg/dl BUN/Creatinine Ratio 27.5 H (10-20) Total Bilirubin 3.2 H (0.2-1.0) mg/dl AST 11 L (13-39) U/L Alkaline Phosphatase 152 H (34-104) U/L Globulin 2.2 L (2.5-4.0) gm/dl Diagnostic Findings Chest X-Ray 05/06/24 12:04 EXAM: Radiograph of the Chest 1 View INDICATION: Stroke symptoms. TECHNIQUE: Frontal view of the chest. COMPARISON: 02/02/2017 and 01/21/2024 FINDINGS: Lungs and pleural spaces: No consolidation or pulmonary edema. No pleural effusion or pneumothorax. Heart: Stable prominent cardiac shadow accentuated by technique. Mediastinum: Normal contour. Bones/joints: Degenerative changes noted throughout the spine and both shoulders. No lytic or blastic lesions noted. Soft tissues: No abnormality noted. No radiopaque foreign body noted. Vasculature: Stable ectatic aorta. Upper abdomen: No abnormality noted. IMPRESSION: No acute cardiopulmonary disease. ACT 112: Negative or not required by law. Electronically signed by Polina Mustafa 05-06-2024 12:[address] 05/06/24 12:04 EXAM: CT Head Without Intravenous Contrast INDICATION: Unspecified neurologic deficit TECHNIQUE: Axial computed tomography images of the head/brain without intravenous contrast. Sagittal and/or coronal reformats are provided. Sagittal and coronal reformatted images were created and reviewed. This CT exam was performed using one or more of the following dose reduction techniques: automated exposure control, adjustment of the mA and/or kV according to patient size, and/or use of iterative reconstruction technique. COMPARISON: 04/09/2024 FINDINGS: Limitations: None. Brain and extra-axial spaces: There is age appropriate cortical atrophy and chronic ischemic periventricular white matter hypodensity. No acute infarct, hemorrhage or mass noted. Bones/joints: No acute changes. Soft tissues: No significant abnormality noted. Vasculature: No acute abnormality noted. Sinuses: There is mild chronic mucosal thickening of the right maxillary and sphenoid sinuses. No sinus fluid. Mastoid air cells: No mastoid effusion. Orbits: No significant abnormality noted. IMPRESSION: Cerebral atrophy. No acute changes. ACT 112: Negative or not required by law. Electronically signed by Polina Mustafa 05-06-2024 13:11 PM Head CTA 05/06/24 12:04 EXAM: CT Angiography Head and Neck With Intravenous Contrast INDICATION: Specified neurologic deficit TECHNIQUE: [place]/head and neck CT angiography protocol performed with intravenous contrast. Sagittal and coronal reformatted images were created and reviewed. This CT exam was performed using one or more of the following dose reduction techniques: automated exposure control, adjustment of the mA and/or kV according to patient size, and/or use of iterative reconstruction technique. MIP reconstructed images were created and reviewed. CONTRAST: 112ml of Optiray 320 was administered intravenously. COMPARISON: None. FINDINGS: HEAD: Right anterior cerebral artery: No abnormality noted. No occlusion or significant stenosis. Anterior communicating artery is present. No aneurysm. Right middle cerebral artery: No abnormality noted. No occlusion or significant stenosis. No aneurysm. Right posterior cerebral artery: No abnormality noted. No occlusion or significant stenosis. No aneurysm. Right intracranial internal carotid artery: No abnormality noted. No significant stenosis. No dissection or occlusion. Right intracranial vertebral artery: No abnormality noted. No significant stenosis. No dissection or occlusion. Left anterior cerebral artery: No abnormality noted. No occlusion or significant stenosis. No aneurysm. Left middle cerebral artery: No abnormality noted. No occlusion or significant stenosis. No aneurysm. Left posterior cerebral artery: No abnormality noted. No occlusion or significant stenosis. No aneurysm. Left intracranial internal carotid artery: No abnormality noted. No significant stenosis. No dissection or occlusion. Left intracranial vertebral artery: No abnormality noted. No significant stenosis. No dissection or occlusion. Basilar artery: No abnormality noted. No occlusion or significant stenosis. No aneurysm. Other vasculature: Patent dural venous sinuses. No vascular malformation. NECK: Right common carotid artery: No abnormality noted. No significant stenosis. No dissection or occlusion. Right extracranial internal carotid artery: No abnormality noted. No significant stenosis. No dissection or occlusion. Right external carotid artery: No abnormality noted. No occlusion. Right extracranial vertebral artery: No abnormality noted. No significant stenosis. No dissection or occlusion. Left common carotid artery: No abnormality noted. No significant stenosis. No dissection or occlusion. Left extracranial internal carotid artery: Minimal calcific plaque at the bulb. No significant stenosis. No dissection or occlusion. Left external carotid artery: No abnormality noted. No occlusion. Left extracranial vertebral artery: No abnormality noted. No significant stenosis. No dissection or occlusion. Trachea: The trachea is significantly shifted to the right and is patent. Thyroid: There is a large substernal left thyroid mass measuring 5.0 x 5.1 x 5.4 cm. Smaller bilateral thyroid nodules present. Lung apices: No significant abnormality noted. HEAD and NECK: Bones/joints: Degenerative changes noted throughout the spine. No acute osseous abnormality seen. Soft tissues: No abnormality noted. CAROTID STENOSIS REFERENCE USING NASCET CRITERIA: % ICA stenosis = (1 - narrowest ICA diameter/diameter of distal cervical ICA) x 100. Mild - <50% stenosis. Moderate - 50-69% stenosis. Severe - 70-94% stenosis. Near occlusion - 95-99% stenosis. Occluded - 100% stenosis. IMPRESSION: 1. No significant angiographic abnormality in the head or neck. 2. Multinodular thyroid with a dominant 5.4 cm left thyroid mass significantly deviating the trachea to the right. ACT 112: Negative or not required by law. Electronically signed by Polina Mustafa 05-06-2024 13:11 PM Neck CTA 05/06/24 12:04 EXAM: CT Angiography Head and Neck With Intravenous Contrast INDICATION: Specified neurologic deficit TECHNIQUE: [place]/head and neck CT angiography protocol performed with intravenous contrast. Sagittal and coronal reformatted images were created and reviewed. This CT exam was performed using one or more of the following dose reduction techniques: automated exposure control, adjustment of the mA and/or kV according to patient size, and/or use of iterative reconstruction technique. MIP reconstructed images were created and reviewed. CONTRAST: 112ml of Optiray 320 was administered intravenously. COMPARISON: None. FINDINGS: HEAD: Right anterior cerebral artery: No abnormality noted. No occlusion or significant stenosis. Anterior communicating artery is present. No aneurysm. Right middle cerebral artery: No abnormality noted. No occlusion or significant stenosis. No aneurysm. Right posterior cerebral artery: No abnormality noted. No occlusion or significant stenosis. No aneurysm. Right intracranial internal carotid artery: No abnormality noted. No significant stenosis. No dissection or occlusion. Right intracranial vertebral artery: No abnormality noted. No significant stenosis. No dissection or occlusion. Left anterior cerebral artery: No abnormality noted. No occlusion or significant stenosis. No aneurysm. Left middle cerebral artery: No abnormality noted. No occlusion or significant stenosis. No aneurysm. Left posterior cerebral artery: No abnormality noted. No occlusion or significant stenosis. No aneurysm. Left intracranial internal carotid artery: No abnormality noted. No significant stenosis. No dissection or occlusion. Left intracranial vertebral artery: No abnormality noted. No significant stenosis. No dissection or occlusion. Basilar artery: No abnormality noted. No occlusion or significant stenosis. No aneurysm. Other vasculature: Patent dural venous sinuses. No vascular malformation. NECK: Right common carotid artery: No abnormality noted. No significant stenosis. No dissection or occlusion. Right extracranial internal carotid artery: No abnormality noted. No significant stenosis. No dissection or occlusion. Right external carotid artery: No abnormality noted. No occlusion. Right extracranial vertebral artery: No abnormality noted. No significant stenosis. No dissection or occlusion. Left common carotid artery: No abnormality noted. No significant stenosis. No dissection or occlusion. Left extracranial internal carotid artery: Minimal calcific plaque at the bulb. No significant stenosis. No dissection or occlusion. Left external carotid artery: No abnormality noted. No occlusion. Left extracranial vertebral artery: No abnormality noted. No significant stenosis. No dissection or occlusion. Trachea: The trachea is significantly shifted to the right and is patent. Thyroid: There is a large substernal left thyroid mass measuring 5.0 x 5.1 x 5.4 cm. Smaller bilateral thyroid nodules present. Lung apices: No significant abnormality noted. HEAD and NECK: Bones/joints: Degenerative changes noted throughout the spine. No acute osseous abnormality seen. Soft tissues: No abnormality noted. CAROTID STENOSIS REFERENCE USING NASCET CRITERIA: % ICA stenosis = (1 - narrowest ICA diameter/diameter of distal cervical ICA) x 100. Mild - <50% stenosis. Moderate - 50-69% stenosis. Severe - 70-94% stenosis. Near occlusion - 95-99% stenosis. Occluded - 100% stenosis. IMPRESSION: 1. No significant angiographic abnormality in the head or neck. 2. Multinodular thyroid with a dominant 5.4 cm left thyroid mass significantly deviating the trachea to the right. ACT 112: Negative or not required by law. Electronically signed by Polina Mustafa 05-06-2024 13:11 PM ECG Additional Comments: ECG revealed sinus rhythm with first-degree AV block at 88 bpm; QTc 454 Code Status & VTE Plan Code Status Full code VTE Prophylaxis Plan VTE Prophylaxis will be ordered: Yes Supervising Physician Co-Signing Physician Notes Patient seen and examined, chart reviewed, case discussed with Zhou Deshpande PA-C and I agree with the assessment and plan as above except as otherwise noted Labs and images reviewed "Mag' is an 79yo F who presents with acute confusion, word finding diffuculty, expressive aphasia upon awaking this morning with unclear last known well. Reportedly 1 evening prior to admission. No slurred speach or facial droop per family, per traige patient with a RIGHT sided facial droop and word finding difficulty on triage assessment. Facial droop improved at time of hospitalist assessment. Speech slowly improving. No extremity strength/sensation abnormalities. No infectious symptoms. No leukocytosis. UA clear. Quad screen negative. CT-H/CTA-H/N naf. Will admit to complete stroke eval. MRI pending. She is anticoagulated for Afib. If CVA --> +Plaavix. Lipids/A1C pending. +Atorvastatin 40mg, adjust as needed based on lipid panel. If MRI is positive then would hold Eliquis for 1 to 3 days based on size of infarct, and start aspirin versus Plavix. If no CVA then still reasonable to add a baby aspirin daily as her story is concerning for high risk TIA PG Care Time/CCT Total # of Minutes Spent Total Time Spent with Patient: Total time spent is greater than 50% in coordination of care (as documented) at patient's floor/unit and/or counseling patient: Coding [place] [address] INT INP/OBS CARE 3/75MIN Patient Type Established Medical Decision Making High Complexity Diagnoses Stroke-like symptoms R29.90 Hypertension I10 PAF (paroxysmal atrial fibrillation) I48.0 Elevated bilirubin R17 Recurrent falls R29.6 Anxiety F41.9
[2024-05-06] MEDS ORDERED: PHARMACIST DISCHARGE MED REC CONSULT PRN (14:38)
[2024-05-06 15:24] LABS: Appearance Urine Clear (Clear); Bilirubin Urine Negative (Negative); Blood Urine Negative (Negative); Color Urine Yellow; Glucose Urine UA Negative (Negative); Ketones Urine 1+ (Negative); Leukocyte Esterase Urine Negative (Negative); Nitrite Urine Negative (Negative); Protein Urine Negative (Negative); Specific Gravity Urine > 1.045 (1.000-1.030); Urobilinogen Urine Negative (Negative); pH Urine 6.5 (4.5-7.5)
[2024-05-06] MEDS: LORazepam 2 MG/1 ML VIAL IV PRN (15:34)
[2024-05-06 16:03] LABS: Influenza A virus by PCR Negative (Neg); Influenza B virus by PCR Negative (Neg); RSV by PCR Negative (Neg); SARS CoV2 RNA(COVID-19) Ceph NEGATIVE (Negative)
--- NOTE | 2024-05-06 16:52 | Magnetic Resonance Report ---
MRI of the brain performed without IV contrast History: Confusion Comparison: Same-day CTA Technique: Sagittal T1-weighted and axial T2-weighted, T2/FLAIR and diffusion-weighted with ADC map images of the brain were obtained without IV contrast. Findings: No evidence for intracranial mass lesion, mass-effect, midline shift, or abnormal extra-axial fluid collection. Moderate to marked generalized cerebral atrophy. Minimal high signal intensity foci in the white matter on T2/FLAIR consistent with chronic small vessel ischemic disease. No abnormally reduced diffusion or evidence for acute infarct. Normal intravascular flow voids. Bilateral pseudophakia. Small fluid in the right mastoid air cells. Impression: Age-related changes without acute intracranial pathology Electronically signed by Ranulfo Casas 05-06-2024 4:52 PM
[2024-05-06] MEDS ORDERED: LABETALOL HCL IV 5 MG/ML 20ML IV PRN (17:23)
[2024-05-06] MEDS: ACETAMINOPHEN 325 MG TAB PO PRN (19:48)
[2024-05-06] MEDS: FLECAINIDE ACETATE 100 MG TABLET PO SCH (20:02)
[2024-05-06] MEDS: APIXABAN 5 MG TABLET PO SCH (21:18)
--- NOTE | 2024-05-07 07:24 | Electrocardiogram Report ---
Test Reason : Blood Pressure : */* mmHG Vent. Rate : 88 BPM Atrial Rate : 88 BPM P-R Int : 228 ms QRS Dur : 100 ms QT Int : 376 ms P-R-T Axes : -1 -17 -13 degrees QTcB Int : 454 ms Sinus rhythm with 1st degree A-V block Minimal voltage criteria for LVH, may be normal variant Poor R wave progression, consider anterior CT vs. lead placement vs. LVH Abnormal ECG When compared with ECG of 21-Jan-2024 19:15, Borderline criteria for Anterior infarct are now Present Confirmed by Ranulfo Rodriguez ([id number]) on 05/07/2024 7:24:07 AM Referred By: Confirmed By: Ranulfo Rodriguez
[2024-05-07 08:23] LABS: Basophils # (auto) 0.01 K/uL (0.00-0.20); Basophils % (auto) 0.2 %; Eosinophils # (auto) 0.11 K/uL (0.00-0.50); Hematocrit (blood only) 36.9 % (37.0-47.0); Hemoglobin 12.4 g/dl (12.0-16.0); Immature Granulocytes # (auto) 0.02 K/uL (0.01-0.20); Immature Granulocytes % (auto) 0.4 %; Lymphocytes # (auto) 0.76 K/uL (1.20-3.40); Lymphocytes % (auto) 13.8 %; Mean Corpuscular Hemoglobin 31.2 pg (25.0-34.0); Mean Corpuscular Hgb Conc 33.6 g/dL (32.0-36.0); Mean Corpuscular Volume 92.7 fL (80.0-100.0); Mean Platelet Volume 11.9 fL (9.4-12.4); Monocytes # (auto) 0.57 K/uL (0.11-0.59); Monocytes % (auto) 10.3 %; Neutrophils # (auto) 4.05 K/uL (1.40-6.50); Neutrophils % (auto) 73.3 %; Platelet Count 135 K/uL (130-400); RDW Coefficient of Variation 12.9 % (11.5-14.5); RDW Standard Deviation 44.3 fL (36.4-46.3); Red Blood Count 3.98 M/uL (4.20-5.40); White Blood Count 5.52 K/ul (4.8-10.8)
[2024-05-07 08:40] LABS: Albumin Level 3.9 gm/dl (3.4-5.0); BUN Creatinine Ratio 28.8 (10-20); Bilirubin,Total 2.6 mg/dl (0.2-1.0); Calcium 9.2 mg/dl (8.6-10.3); Chol HDL Ratio 2.5 (0-5); Creatinine Clr Calc Pharmacy 72.1 ml/min; Potassium 3.9 mmol/L (3.5-5.1); Total Protein 5.9 gm/dl (6.0-8.3)
[2024-05-07 08:58] LABS: Estimated Average Glucose 97 mg/dl
[2024-05-07] MEDS: CLOPIDOGREL BISULFATE 75 MG TAB PO SCH (08:59)
[2024-05-07] MEDS: ATORVASTATIN 40 MG TAB PO SCH (08:59)
[2024-05-07] MEDS: PANTOprazole 40 MG TAB PO SCH (08:59)
[2024-05-07] MEDS: SERTRALINE HCL 50 MG TABLET PO SCH (08:59)
[2024-05-07] MEDS ORDERED: ASPIRIN 81 MG ECTAB PO SCH (09:00)
[2024-05-07] MEDS ORDERED: METOPROLOL SUCC 25MG EXT REL TAB PO SCH (09:00)
--- NOTE | 2024-05-07 09:07 | XCELERA ---
[id number] \\[id number]
[2024-05-07 10:52] VITALS: BP 124/79; RESP 18; TEMP 98.2; O2SAT 96
[2024-05-07 15:24] VITALS: PULSE 94
--- NOTE | 2024-05-07 16:06 | Discharge Summary ---
Discharge Summary Date of Service May 07, 2024 Principal Dx & Hospital Course #1 = Principal Diagnosis (1) Stroke-like symptoms: Misty is an 79-year-old female with PMH of HTN, Gilbert's disease, thrombocytopenia, and paroxysmal atrial fibrillation (on Eliquis). She presented on 05/06 for extreme confusion upon waking around 0830. Patient's daughter (Cindy) is at bedside with concern for acute mental status change. She is admitted for stroke evaluation. CTAhead and neck did not show evidence of acute occlusion or strokelike deficits. Follow-up MRI did not show evidence of stroke. 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 She was seen by PT/OT who strongly recommended 24-hour care versus SNF. Patient's family was able to coordinate [facility]. This was coordinated by patient's daughter and was ready with a confirmed room at time of discharge. Patient had returned to her normal mental status by time of discharge. Did discuss her symptoms with patient and daughter at the bedside noted that she did not have difficulty understanding or expressing speech but felt more confused and with word finding difficulty. Did discuss risk/benefits of adding aspirin versus Plavix to her apixaban for potential stroke prophylaxis, and that a TIA is not excluded from her imaging. On shared decision making due to bleeding risk and suspicion for some senile aphasia and cognitive decline deferred aspirin/Plavix and continued on apixaban During admission patient was noted to have an enlarging thyroid mass which had been previously known and biopsied in 2019, but which has continued to clinically progress. She does not show any signs of airway compromise stridor, or respiratory distress function but does have notable tracheal deviation on imaging. Her thyroid levels were normal. As she did not have airway compromise or any symptoms from this, was recommended to continue outpatient follow-up although given its progressive size was recommended to follow-up with ENT and to consider a repeat FNA as her prior pathology was subadequate for their evaluation. To do as outpatient: 1. Follow-up with ENT regarding thyroid mass. Consider repeat FNA 2. Routine outpatient follow-up (2) Hypertension: (3) PAF (paroxysmal atrial fibrillation): (4) Elevated bilirubin: (5) Recurrent falls: (6) Anxiety: Admission HPI Per Admitting Provider Misty is an 79-year-old female with PMH of HTN, Gilbert's disease, thrombocytopenia, and paroxysmal atrial fibrillation (on Eliquis). She presented on 05/06 for extreme confusion upon waking around 0830. Patient's daughter (Cindy) is at bedside and confirms that this was an acute change from her cognitive baseline. Patient reports that she felt "out to lunch" this morning and was having trouble communicating and speaking. Patient lives at [facility]. She had word finding difficulty this morning, and daughter reports that at 1 point she could not find her boot, even though it was on her foot. Daughter also reports that she confused her shoe for a rollator, and asked to be put on the toilet to go to the bathroom when she was on the toilet. Daughter reports that her symptoms began to improve on their way to the ER. While triage reported a right-sided facial droop, this was not appreciated by daughter or patient. Patient denies slurred speech, facial droop, or unilate ral deficits. She does endorse word finding difficulty and vision changes. Initially, in regard to vision changes, patient endorsed "double vision". When asked if this was bmji-pa-gjce diplopia, patient reports she is unsure what sort of double vision she was having this morning, as she was very confused. Patient wears reading glasses as needed. No prior history of strokes. She does have ambulatory dysfunction at baseline, and ambulates with a rollator at home. She sustained 2 falls recently, 1 in January, and 1 on 04/09 which required an ER visit; patient hit her head on her birthday. No sick contacts. Patient took her regular morning medicine today; she manages at home as at home. Only recent change was that she was started on Zoloft recently. Additionally, patient endorses lumbar spine pain x 3 days. Patient has 2 cats (Constantin and Adriana); when asked, initially she forgot their names. Patient did sustain a fall last week (on blood thinners). Patient's BP in the room is 173/87 at time of admission consult; vitals otherwise stable. ED course: ROS: Patient endorses incoherent thought processes, expressive aphasia, headache, potential diplopia, sinus congestion, and numbness in the fingers. Patient denies fever, chills, night-sweats, dizziness, lightheadedness, photophobia, neck pain/stiffness, slurred speech, facial droop, unilateral deficits, tinnitus, chest pain, chest palpitations, SOB, cough, abdominal pain, N/V/D, burning with urination, blood in the urine/stool, or numbness/tingling in the legs. Discharge Exam General: Oriented to name and place, but impulsive and tangential. Some word finding difficulty but speech is generally fluent without dysarthria HEENT: Atraumatic, normocephalic. Palpable left thyroid mass Pulm: CTAB A&P. -wheezes, -rales, -rhonchi. Symmetrical chest rise. No increased work of breathing. No respiratory distress. Cardiac: RRR, -mrg. Radial pulses intact and symmetrical. Abdominal: Nontender, nondistended, soft. BS present. Discharge Plan Discharge Items Patient Disposition: Personal [facility] Living Reason For Visit: STROKE-LIKE SYMPTOMS Discharge Diagnosis: Word finding difficulty Activity: As commented below Non-emergency contact: Primary Care Provider Call non-emergency contact if: you have any medication questions, your symptoms worsen and your pain is not controlled Follow-up/Referrals: Francisca Ovalles [Primary Care Provider] - Pilo Zuluaga MD [Physician] - Diet: Regular Addtl Attending Provider Instructions: You are seen in the hospital for word finding difficulty, altered mental status and concern for stroke. A CAT scan of your head, neck blood vessels in the head and neck did not show evidence of stroke or blood vessel blockages. An MRI of your brain did not show any evidence of stroke. You were noted to have significant word finding difficulty likely related to age-related cognitive decline. CT of your neck did show evidence of enlargement of your previously known left-sided thyroid mass. This did not cause you any respiratory difficulties during admission however this is increased to 5 cm with some displacement of your trachea. Is recommended to follow-up with ENT and your primary care for further. You had a prior FNA of this which had been reported as negative, on independent review over there was some question for adequacy of the sample so your outpatient providers may wish to repeat an FNA for further analysis. Your thyroid levels during admission were normal. On further discussion with you and your daughter he felt that your word finding difficulty was more related with confusion and difficulty finding words, rather than a true difficulty understanding or expressing language and did not have dysarthria. Over/benefits of starting aspirin or Plavix in addition to your apixaban for stroke prophylaxis were discussed, due to increased risk of bleeding and negative imaging, although this does not rule out a TIA, on shared decision making you were continued on apixaban alone and aspirin/Plavix were deferred. On assessment by physical therapy due to increased needs it was recommended to h ave either 24-hour care or switch to a skilled living environment. You were able to arrange for a room with [facility] personal care at [facility]. Please follow-up with your primary care provider. Copies of your discharge summary have been sent to Dr. Chris. If you develop any new or worsening symptoms including fever, chills, sweats, chest pain, chest pressure, difficulty breathing, uncontrolled nausea/vomiting, rash, wheezing, passing out or nearly passing out, bleeding, black/bloody bowel movements, or other new or concerning symptoms please call your primary care physician, or call 911 for re-evaluation in the emergency department if you are very concerned. Pending Studies at Discharge: No Stand-Alone Forms: My Altar, Smoking Cessation Skilled Items Patient informed of condition?: Yes DNR: No Discharge Level of Care: Skilled Communicable Disease: No Discharge Prognosis: Stable Lines: None Urinary Catheter: No Medications and DC Order Prescriptions: Continued omeprazole 20 mg capsule,delayed release(DR/EC) 20 mg PO DAILY Qty: 90 3RF Eliquis 5 mg tablet 5 mg PO BID Qty: 180 3RF cholecalciferol (vitamin D3) 50 mcg (2,000 unit) capsule 2,000 unit PO DAILY Rx Instructions: otc unable to verify lorazepam 0.5 mg tablet 0.5 mg PO DAILY PRN (Reason: anxiety ) sertraline 25 mg tablet 25 mg PO DAILY oxycodone-acetaminophen [Percocet] 5-325 mg tablet 1 tab PO UD PRN (Reason: pain) Rx Instructions: 1 tab po q6h prn. last filled in January 2024 flecainide 100 mg tablet 100 mg PO BID metoprolol succinate [Toprol XL] 25 mg tablet extended release 24 hr 12.5 mg PO UD Rx Instructions: 12.5 mg po daily. Per pharmacist, she last picked 12/10/23 as the full 25 mg po daily . As of January, she hasn't picked up the 12.5 mg script Admission Data Admit Date/Time: 05/06/24 14:45 Attending Provider: Fidencio Armstrong Admit Provider: Fidencio Armstrong Primary Care Provider: Francisca Ovalles Other Providers: Fidencio Armstrong Other Interventions: Discharge Summary Assessment (RN) Last Done: 05/07/24 15:22 Hospital Stay Data Consultations 05/06/24 14:30 ED Decision to Admit Stat Diagnostic Imagining Performed 05/06/24 12:04 CT angio head w con Stat CT angio neck with con Stat CT head/brain wo con Stat 05/06/24 14:38 MR brain wo con Stat Discharge Instructions Given to Patient (Per Discharging Provider) You are seen in the hospital for word finding difficulty, altered mental status and concern for stroke. A CAT scan of your head, neck blood vessels in the head and neck did not show evidence of stroke or blood vessel blockages. An MRI of your brain did not show any evidence of stroke. You were noted to have significant word finding difficulty likely related to age-related cognitive decline. CT of your neck did show evidence of enlargement of your previously known left-sided thyroid mass. This did not cause you any respiratory difficulties during admission however this is increased to 5 cm with some displacement of your trachea. Is recommended to follow-up with ENT and your primary care for further. You had a prior FNA of this which had been reported as negative, on independent review over there was some question for adequacy of the sample so your outpatient providers may wish to repeat an FNA for further analysis. Your thyroid levels during admission were normal. On further discussion with you and your daughter he felt that your word finding difficulty was more related with confusion and difficulty finding words, rather than a true difficulty understanding or expressing language and did not have dysarthria. Over/benefits of starting aspirin or Plavix in addition to your apixaban for stroke prophylaxis were discussed, due to increased risk of bleeding and negative imaging, although this does not rule out a TIA, on shared decision making you were continued on apixaban alone and aspirin/Plavix were deferred. On assessment by physical therapy due to increased needs it was recommended to have either 24-hour care or switch to a skilled living environment. You were able to arrange for a room with [facility]. Please follow-up with your primary care provider. Copies of your discharge summary have been sent to Dr. Chris. If you develop any new or worsening symptoms including fever, chills, sweats, chest pain, chest pressure, difficulty breathing, uncontrolled nausea/vomiting, rash, wheezing, passing out or nearly passing out, bleeding, black/bloody bowel movements, or other new or concerning symptoms please call your primary care physician, or call 911 for re-evaluation in the emergency department if you are very concerned. Total Time Total Time Spent Total Time Spent (In Minutes): Time spend day of discharge 75 minutes including direct patient care, documentation, review of labs and images, and coordination of care. Coding Level of Care Code 39748 INP/OBS DISCH >30 MIN Diagnoses Stroke-like symptoms R29.90 Hypertension I10 PAF (paroxysmal atrial fibrillation) I48.0 Elevated bilirubin R17 Recurrent falls R29.6 Anxiety F41.9
--- NOTE | 2024-05-07 16:09 | Communication Note ---
Date of Service: May 07, 2024 By CMS guidelines, a determination that the admission or continued stay is not medically necessary has been made by a member of the UR committee and a ph ysician for this hospital stay, therefore a Code 44 will be completed and the Inpatient admission will be changed to outpatient.
--- NOTE | 2024-05-07 16:11 | Communication Note ---
Date of Service: May 07, 2024 By CMS guidelines, a determination that the admission or continued stay is not medically necessary has been made by a member of the UR committee and sofia jimenes for this hospital stay, therefore a Code 44 will be completed and the Inpatient admission will be changed to outpatient.
[2024-05-07] MEDS ORDERED: STROKE PATIENT DISCHARGE STA (16:12)
== END 2024-05-07 17:06 | disposition home or self-care (01) ==
LOC: ED 11:46 → 2S 14:45 → INTOOBSV 14:45 → 2S 15:22

== ENCOUNTER 2024-06-05 10:37 | Inpatient (IN) ==
[2024-06-05] MEDS: SODIUM CHLORIDE 0.9% 500 ML IV ONE (11:20)
[2024-06-05] MEDS: ACETAMINOPHEN 1,000 MG/100 ML VIAL IV STA (11:29)
[2024-06-05 11:31] LABS: Basophils # (auto) 0.01 K/uL (0.00-0.20); Basophils % (auto) 0.1 %; Hematocrit (blood only) 38.8 % (37.0-47.0); Hemoglobin 12.7 g/dl (12.0-16.0); Immature Granulocytes # (auto) 0.08 K/uL (0.01-0.20); Immature Granulocytes % (auto) 0.8 %; Lymphocytes # (auto) 0.41 K/uL (1.20-3.40); Lymphocytes % (auto) 3.9 %; Mean Corpuscular Hemoglobin 31.4 pg (25.0-34.0); Mean Corpuscular Hgb Conc 32.7 g/dL (32.0-36.0); Mean Platelet Volume 12.3 fL (9.4-12.4); Monocytes # (auto) 0.76 K/uL (0.11-0.59); Monocytes % (auto) 7.2 %; Neutrophils # (auto) 9.29 K/uL (1.40-6.50); Platelet Count 118 K/uL (130-400); RDW Coefficient of Variation 13.2 % (11.5-14.5); RDW Standard Deviation 47.5 fL (36.4-46.3); Red Blood Count 4.04 M/uL (4.20-5.40); White Blood Count 10.55 K/ul (4.8-10.8)
[2024-06-05 11:44] LABS: Prothrombin Time 10.9 Seconds (9.0-12.0)
[2024-06-05] MEDS: OPTIRAY 320 100ml IV ONE (11:44)
[2024-06-05 11:49] LABS: Albumin Globulin Ratio 1.4 (0.9-2); Albumin Level 3.9 gm/dl (3.4-5.0); BUN Creatinine Ratio 30.4 (10-20); Bilirubin,Total 3.1 mg/dl (0.2-1.0); Calcium 9.6 mg/dl (8.6-10.3); Creatinine Clr Calc Pharmacy 60.8 ml/min; Globulin 2.7 gm/dl (2.5-4.0); Potassium 3.7 mmol/L (3.5-5.1); Total Protein 6.6 gm/dl (6.0-8.3)
[2024-06-05 11:55] LABS: Troponin I High Sensitivity 2.8 pg/ml (0-14)
--- NOTE | 2024-06-05 12:14 | CT Scan Report ---
CT OF THE ABDOMEN AND PELVIS WITH CONTRAST CLINICAL HISTORY: Abdominal and back pain. COMPARISON STUDY: CT of the abdomen and pelvis October 01, 2013. Lumbar spine radiographs May 02. Right hip radiographs April 11, 2024. CT of the abdomen and pelvis May 12, 2023. TECHNIQUE: Following IV administration of 94 mL of Optiray, axial images of the abdomen and pelvis we re obtained from the lung bases to the proximal femurs. Images were reviewed in the axial, sagittal, and coronal planes. IV contrast was administered without complication. Automated exposure control wa s utilized for the study. A dose lowering technique was utilized adhering to the principles of ALARA . CT DOSE: 1162.48 mGy.cm FINDINGS: Visualized portions of the lung bases are unremarkable. There is no pneumatosis, free air o r portal venous gas. The liver, spleen, adrenal glands and pancreas are unremarkable. There is no amanda iary or pancreatic ductal dilatation. Multiple nonobstructing bilateral renal calculi measure up to 5 mm. There are no ureteral calculi. There is no hydronephrosis. A 6.6 cm left sided fibroid is unchan ged. There is no evidence for a bowel obstruction. Note is made of colonic diverticulosis without willie dence for acute diverticulitis. Moderate anterior left pelvic stranding is centered upon comminuted m ildly displaced fractures of the medial left pubic bone. There is also stranding within the left groi n. Multiple associated bone fragments are present. There is also an associated multiloculated fluid c ollection within the left adductor musculature which measures 3.6 x 2.7 cm. This collection contains ossific/calcific material. Subtle sclerosis of the intertrochanteric portion of the right femur is ne w since prior CT. There are healing bilateral sacral ala insufficiency fractures. No lumbar spine fra ctures are present. IMPRESSION: 1. Sclerosis within the intertrochanteric portion of the right femur which is new since CT of May 12, 2023. This is suggestive of a subacute healing nondisplaced fracture. Orthopedic consultation is recommended 2. Comminuted mildly displaced medial left pubic bone fractures with adjacent bone fragments/callus f ormation. Moderate adjacent stranding. Therefore, these fractures are acute to subacute. Associated r im-enhancing multiloculated fluid collection within the left adductor musculature which measures 3.7 x 2.7 cm. 3. Healing bilateral sacral insufficiency fractures. 4. Bilateral nephrolithiasis. No ureteral calculi. No hydronephrosis. 5. No bowel obstruction. No bowel wall thickening. 6. Colonic diverticulosis. No evidence for acute diverticulitis. ACT 112: Negative or not required by law. Electronically signed by: Aly Paredes M.D. 06/05/2024 12:13 PM
[2024-06-05 12:21] LABS: Adenovirus PCR Not Detected (NotDetected); Bordetella parapertussis PCR Not Detected (NotDetected); Bordetella pertussis PCR Not Detected (NotDetected); Chlamydia pneumoniae PCR Not Detected (NotDetected); Coronavirus 229E PCR Not Detected (NotDetected); Coronavirus CoV-2 (COVID19)PCR Not Detected (NotDetected); Coronavirus HKU1 PCR Not Detected (NotDetected); Coronavirus NL63 PCR Not Detected (NotDetected); Coronavirus OC43PCR Not Detected (NotDetected); Human Metapneumovirus PCR Not Detected (NotDetected); Influenza A PCR Not Detected (NotDetected); Influenza B PCR Not Detected (NotDetected); Mycoplasma pneumoniae PCR Not Detected (NotDetected); Parainfluenza Virus 1 PCR Not Detected (NotDetected); Parainfluenza Virus 2 PCR Not Detected (NotDetected); Parainfluenza Virus 3 PCR Not Detected (NotDetected); Parainfluenza Virus 4 PCR Not Detected (NotDetected); Respiratory Syncytial VirusPCR Not Detected (NotDetected); Rhinovirus/Enterovirus PCR Not Detected (NotDetected)
--- NOTE | 2024-06-05 13:06 | Emergency Department Note ---
Impression & Plan Closed right hip fracture, Fracture of left superior pubic ramus with routine healing, Recurrent falls, Ambulatory dysfunction ED Provider Note NAME: JIMI PATRICK AGE: 79 SEX: F : 1945 ARRIVES VIA: Ambulance INFORMANT: Patient ED PROVIDER(S): Patel Gómez MD CHIEF COMPLAINT: Abdominal pain, back spasms. PLAN: Disposition: Admit MEDICAL DECISION MAKING: The patient is a pleasant 79-year-old woman with a past medical history of atrial fibrillation on Eliquis, hypertension, anxiety who presents to the emergency department via EMS from her personal longterm at [facility] and accompanied by her daughter for evaluation of abdominal pain and low back pain with spasms. Patient presents in the setting of recent admission to this facility in April for strokelike symptoms where she did have a negative stroke evaluation including MRI of the brain. Suspicion for component of dementia and the patient was transitioned from independent living to personal care at her facility at [facility]. They report constipation but did not move her bowels yesterday. They wonder if she may have a UTI as she feels she may have some burning. Patient and her daughter deny any cough, congestion, chest pain, shortness of breath, nausea, vomiting, diarrhea. Of note, the patient did arrive to emergency department during time of high volume, acuity and prolonged emergency department waiting times. Critical pathways initiated from triage. EKG without overt acute ischemia. WBC within normal limits. H/H within normal limits. Platelets 118K, proximate to prior range values. Chemistry without metabolic acidosis. BUNs/creatinine 30 consistent with patient's clinically dry appearance. Total bilirubin 3.1, nonspecific with LFTs otherwise unremarkable. Total bilirubin elevation similar to prior consistent with history of Gilbert's. High sensitivity troponin 2.8, within normal limits. Lipase is not elevated. Respiratory BioFire was negative. CT of the abdomen pelvis was performed and demonstrates sclerosis within the intertrochanteric portion of the right femur which is new from April 2023 and interpreted as subacute healing nondisplaced fracture. Additional note is made of comminuted and mildly displaced medial left pubic bone fractures with adjacent bone fragments/callus formation and moderate adjacent stranding. Findings suggest fractures to be acute to subacute. Suspected hematoma also described with rim-enhancing multiloculated fluid collection within the adductor musculature measuring 3.7 x 2.7 cm. Additional description of healing bilateral sacral insufficiency fractures are noted. Findings reviewed the patient and her daughter at the bedside. She was reexamined and pubic bone findings do correlate with the patient's reported acute pain. However due to her recent cognitive impairment she does not recall any falls where this may have occurred. Daughter recalls that staff had reported that since Wednesday she has been unable to walk without significant assistance. They further speculate that she may have been having issues ever since a couple weeks ago. Case was discussed with Dr. Colon, orthopedic surgery on-call. Appreciate consultation and recommendations. Further characterization of the patient's CT findings were pursued with initial plain films and subsequently with MRI of the pelvis. Appreciate bedside evaluation by Dr. Colon. MRI report is pending. At this time acute fracture of the patient's right hip is considered less likely though not completely excluded. Option for surgical repair was discussed and family had opted to think about this further. Recommendations are for admission to hospitalist service for further management of patient's ambulatory dysfunction and possible OR per family's decision. Appreciate case management assistance/consultation as well who did confirm with her facility that they could [facility] given her new limitations. Case was discussed with Dr. [facility] hospitalist, who evaluate the patient for admission. Further management per admitting team. Triage Nursing notes reviewed and agree them. Prior/external medical records reviewed Vital Signs: reviewed Differential diagnosis: Gastroenteritis, food borne illness, infections, appendicitis, diverticulitis, inflammatory bowel disease, obstruction, GI bleed, biliary pathology, volvulus, as well as other pathologies. ER treatment provided: See below. Diagnostics interpreted by me: ECG: Normal sinus rhythm with sinus arrhythmia, 70 bpm, no ectopy, LVH, nonspecific ST and T wave abnormality, no overt ST elevation or depression, QTc 436, QRS 116 Cardiac Monitoring: An order for continuous cardiac monitoring was placed and demonstrated normal sinus rhythm, 70 bpm, no ectopy. Laboratory studies: See below Imaging studies: See below Consultation(s): Dr. Colon, orthopedic surgery on-call. Dr. Marion [facility] hospitalist HPI: The patient is a pleasant 79-year-old woman with a past medical history of atrial fibrillation on Eliquis, hypertension, anxiety who presents to the emergency department via EMS from her personal longterm at [facility] and accompanied by her daughter for evaluation of abdominal pain and low back pain with spasms. Patient presents in the setting of recent admission to this facility in April for strokelike symptoms where she did have a negative stroke evaluation including MRI of the brain. Suspicion for component of dementia and the patient was transitioned from independent living to personal care at her facility at [facility]. They report constipation but did not move her bowels yesterday. They wonder if she may have a UTI as she feels she may have some burning. Patient and her daughter deny any cough, congestion, chest pain, shortness of breath, nausea, vomiting, diarrhea. ROS: See above HPI for pertinent positives & negatives. A total of 10 systems reviewed and were otherwise negative. VITALS:See Below PHYSICAL EXAMINATION: GENERAL: Awake, alert, in no distress HENT: Normocephalic, atraumatic. Oropharynx with dry mucous membranes and otherwise unremarkable. EYES: Normal conjunctiva. Sclera non-icteric. EOMI. No nystamgus. PEARRL. NECK: Supple. No nuchal rigidity. FROM. No JVD. No midline tenderness to palpation or step-offs. RESPIRATORY: Clear to auscultation. CARDIAC: Regular rate, normal rhythm. Extremities warm and well perfused. Pulses equal. ABDOMEN: Soft, non-distended. No tenderness to palpation. No rebound or guarding. MUSCULOSKELETAL: Chest examination reveals no tenderness. The back is symmetrical on inspection without obvious abnormality. No midline tenderness to palpation or step-offs. There is no CVA tenderness to palpation. No joint edema. Patient exhibits tenderness of the left pubic region and left medial thigh/groin. She exhibits limited range of motion of the left hip secondary to pain. Patient is able to range her right hip fully without discomfort. Distal PMS is intact bilaterally. LOWER EXTREMITIES: Calves are equal size bilaterally and non-tender. No edema. No discoloration. NEURO: Patient exhibits mild confusion which appears to be her recent baseline with poor memory. She is alert and oriented to self, place and situation. She exhibits no focal sensory or motor deficits at this time. SKIN: No rash or jaundice noted. Patel Gómez MD Past Med/Surg History Problem List (Updated 06/06/24 @ 02:34 by Patel Gómez MD) Recurrent falls (Acute) Closed right hip fracture (Acute) Ambulatory dysfunction (Acute) Fracture of left superior pubic ramus with routine healing (Acute) Closed right hip fracture Degenerative disc disease, lumbar Bilateral sacroiliitis Stroke-like symptom (Acute) Recurrent falls Elevated bilirubin Stroke-like symptoms Fracture of metatarsal of right foot, closed (Acute) Fracture of triquetral bone of right wrist (Acute) Hypertrophic toenail Bilateral ankle pain Grief reaction Anxiety Dalton disease Hypertension Vitamin D deficiency Insomnia Thrombocytopenia Enlarged thyroid Thyroid Nodule PAF (paroxysmal atrial fibrillation) Diastolic dysfunction Degenerative arthritis of right knee Medical History Facial droop Surgical History History of repair of rotator cuff History of knee replacement History of foot surgery History of cataract surgery Family History Father Myocardial infarction Mother Alcohol abuse Father Cardiac disorder Myocardial infarction Family/Other Breast cancer Heart disease Denies family history of Ovarian cancer Prostate cancer Colorectal cancer Social History Smoking Status: Former smoker Tobacco Type: Cigarettes Age Started Using Tobacco: 15; Age Quit Using Tobacco: 35; packs per day: 0.5; Cigarettes Per Day: 10; Second Hand Exposure: No; Do You Dip or Chew Tobacco: No; Hx Alcohol Use: No Hx Substance Use: No Preferred Language: Fijian Communication Ability: Effective Visual Impairment: No Limitations Hearing Ability: Normal [employer] Consultant Required: No Beliefs That Will Affect Care: None marital status: / Current Living Situation: Personal Care Facility Current Living Situation Comment: [facility] current occupational status: retired current occupation: was a homemaker Feels Safe at Home: Yes Childhood Exposure to Second-Hand Smoke: Yes Diet: regular Dental Care, Regularly: Yes Physical Activity Frequency: Does not Exercise Seatbelt Use: always Sunscreen Use: Yes Assistive Devices: Glasses and Walker Allergies Allergies Allergy/AdvReac Type Severity Reaction Status Date / Time Penicillins Allergy Mild HIVES Verified 05/30/24 11:28 Home Meds Home Medications Medication Instructions Recorded Confirmed cholecalciferol (vitamin D3) 50 2,000 unit PO DAILY 05/23/20 06/05/24 mcg (2,000 unit) capsule flecainide 100 mg tablet 100 mg PO BID 05/06/24 06/05/24 metoprolol succinate 25 mg 12.5 mg PO DAILY 05/06/24 06/05/24 tablet,extended release 24 hr (Toprol XL) hydrocodone 5 mg-acetaminophen 325 1 tab PO Q6H PRN Pain 05/18/24 06/05/24 mg tablet lorazepam 0.5 mg tablet 0.5 mg PO DAILY PRN Other 06/05/24 06/05/24 Previous Rx's Medication Instructions Recorded apixaban 5 mg tablet (Eliquis) 5 mg PO BID #180 tabs 05/25/22 Results & Data (ED) Vital Signs Vital Signs - 24 hr 06/05/24 10:45 06/05/24 10:56 06/05/24 10:56 Temperature 36.9 C Temperature Source Oral Pulse Rate 77 Pulse Rate [Apical] 84 Pulse Rate from SpO2 Sensor Respiratory Rate 20 19 Respiratory Effort / Characteristics Non-Labored Spontaneous Non-Labored Spontaneous Respiratory Depth Normal Normal Blood Pressure 138/72 138/72 Blood Pressure [Left Arm] 119/64 Blood Pressure Mean 104 94 Blood Pressure Mean [Left Arm] 82 Blood Pressure Position [Left Arm] Pulse Oximetry 97 Oxygen Delivery Method Room Air Sepsis Recent Fever Within 48 Hours No Sepsis New/Unexplained Change in Mental Status No Sepsis Action Taken by Nursing No Action Required 06/05/24 11:00 06/05/24 11:00 06/05/24 11:00 Temperature Temperature Source Pulse Rate 76 Pulse Rate [Apical] Pulse Rate from SpO2 Sensor 77 Respiratory Rate 24 Respiratory Effort / Characteristics Respiratory Depth Blood Pressure 119/64 119/64 Blood Pressure [Left Arm] Blood Pressure Mean 79 79 Blood Pressure Mean [Left Arm] Blood Pressure Position [Left Arm] Pulse Oximetry 98 Oxygen Delivery Method Sepsis Recent Fever Within 48 Hours Sepsis New/Unexplained Change in Mental Status Sepsis Action Taken by Nursing 06/05/24 11:06 06/05/24 11:12 06/05/24 11:12 Temperature 36.4 C L Temperature Source Temporal Artery Scan Pulse Rate 82 80 Pulse Rate [Apical] 85 Pulse Rate from SpO2 Sensor 80 Respiratory Rate 25 H 18 Respiratory Effort / Characteristics Non-Labored Respiratory Depth Normal Blood Pressure Blood Pressure [Left Arm] 128/75 Blood Pressure Mean Blood Pressure Mean [Left Arm] 92 Blood Pressure Position [Left Arm] Pulse Oximetry 96 97 Oxygen Delivery Method Room Air Sepsis Recent Fever Within 48 Hours Sepsis New/Unexplained Change in Mental Status Sepsis Action Taken by Nursing 06/05/24 11:19 06/05/24 11:30 06/05/24 11:30 Temperature Temperature Source Pulse Rate 75 Pulse Rate [Apical] Pulse Rate from SpO2 Sensor Respiratory Rate 17 Respiratory Effort / Characteristics Respiratory Depth Blood Pressure 125/68 125/68 Blood Pressure [Left Arm] Blood Pressure Mean 92 92 Blood Pressure Mean [Left Arm] Blood Pressure Position [Left Arm] Pulse Oximetry 96 Oxygen Delivery Method Room Air Sepsis Recent Fever Within 48 Hours Sepsis New/Unexplained Change in Mental Status Sepsis Action Taken by Nursing 06/05/24 11:30 06/05/24 11:54 06/05/24 11:57 Temperature Temperature Source Pulse Rate 79 71 72 Pulse Rate [Apical] Pulse Rate from SpO2 Sensor 79 73 72 Respiratory Rate 21 26 H 18 Respiratory Effort / Characteristics Respiratory Depth Blood Pressure Blood Pressure [Left Arm] Blood Pressure Mean Blood Pressure Mean [Left Arm] Blood Pressure Position [Left Arm] Pulse Oximetry 97 94 97 Oxygen Delivery Method Sepsis Recent Fever Within 48 Hours Sepsis New/Unexplained Change in Mental Status Sepsis Action Taken by Nursing 06/05/24 12:00 06/05/24 12:00 06/05/24 12:15 Temperature Temperature Source Pulse Rate 72 Pulse Rate [Apical] Pulse Rate from SpO2 Sensor 70 Respiratory Rate 21 Respiratory Effort / Characteristics Respiratory Depth Blood Pressure 125/66 125/66 Blood Pressure [Left Arm] Blood Pressure Mean 92 92 Blood Pressure Mean [Left Arm] Blood Pressure Position [Left Arm] Pulse Oximetry 92 Oxygen Delivery Method Sepsis Recent Fever Within 48 Hours Sepsis New/Unexplained Change in Mental Status Sepsis Action Taken by Nursing 06/05/24 12:18 06/05/24 12:30 06/05/24 12:35 Temperature Temperature Source Pulse Rate 79 Pulse Rate [Apical] 70 Pulse Rate from SpO2 Sensor 79 Respiratory Rate 20 20 Respiratory Effort / Characteristics Respiratory Depth Blood Pressure 119/74 Blood Pressure [Left Arm] 119/74 Blood Pressure Mean 99 Blood Pressure Mean [Left Arm] 89 Blood Pressure Position [Left Arm] Pulse Oximetry 95 98 Oxygen Delivery Method Sepsis Recent Fever Within 48 Hours Sepsis New/Unexplained Change in Mental Status Sepsis Action Taken by Nursing 06/05/24 13:00 06/05/24 13:06 06/05/24 13:27 Temperature Temperature Source Pulse Rate 77 69 Pulse Rate [Apical] Pulse Rate from SpO2 Sensor Respiratory Rate 20 23 Respiratory Effort / Characteristics Respiratory Depth Blood Pressure 141/78 H Blood Pressure [Left Arm] Blood Pressure Mean 98 Blood Pressure Mean [Left Arm] Blood Pressure Position [Left Arm] Pulse Oximetry Oxygen Delivery Method Sepsis Recent Fever Within 48 Hours Sepsis New/Unexplained Change in Mental Status Sepsis Action Taken by Nursing 06/05/24 13:30 06/05/24 13:30 06/05/24 13:33 Temperature Temperature Source Pulse Rate 67 Pulse Rate [Apical] Pulse Rate from SpO2 Sensor Respiratory Rate 21 Respiratory Effort / Characteristics Respiratory Depth Blood Pressure 122/74 122/74 Blood Pressure [Left Arm] Blood Pressure Mean 87 87 Blood Pressure Mean [Left Arm] Blood Pressure Position [Left Arm] Pulse Oximetry Oxygen Delivery Method Sepsis Recent Fever Within 48 Hours Sepsis New/Unexplained Change in Mental Status Sepsis Action Taken by Nursing 06/05/24 13:42 06/05/24 13:51 06/05/24 14:00 Temperature Temperature Source Pulse Rate 75 79 Pulse Rate [Apical] 76 Pulse Rate from SpO2 Sensor Respiratory Rate 21 18 18 Respiratory Effort / Characteristics Non-Labored Spontaneous Respiratory Depth Normal Blood Pressure Blood Pressure [Left Arm] 140/88 Blood Pressure Mean Blood Pressure Mean [Left Arm] 105 Blood Pressure Position [Left Arm] Pulse Oximetry 96 97 Oxygen Delivery Method Room Air Sepsis Recent Fever Within 48 Hours Sepsis New/Unexplained Change in Mental Status Sepsis Action Taken by Nursing 06/05/24 14:00 06/05/24 14:00 06/05/24 14:12 Temperature Temperature Source Pulse Rate 76 76 Pulse Rate [Apical] Pulse Rate from SpO2 Sensor Respiratory Rate 19 19 Respiratory Effort / Characteristics Respiratory Depth Blood Pressure 116/69 Blood Pressure [Left Arm] Blood Pressure Mean 80 Blood Pressure Mean [Left Arm] Blood Pressure Position [Left Arm] Pulse Oximetry 97 Oxygen Delivery Method Sepsis Recent Fever Within 48 Hours Sepsis New/Unexplained Change in Mental Status Sepsis Action Taken by Nursing 06/05/24 14:42 06/05/24 14:54 06/05/24 15:00 Temperature Temperature Source Pulse Rate 76 74 Pulse Rate [Apical] Pulse Rate from SpO2 Sensor Respiratory Rate 20 22 Respiratory Effort / Characteristics Respiratory Depth Blood Pressure 130/66 Blood Pressure [Left Arm] Blood Pressure Mean 100 Blood Pressure Mean [Left Arm] Blood Pressure Position [Left Arm] Pulse Oximetry Oxygen Delivery Method Sepsis Recent Fever Within 48 Hours Sepsis New/Unexplained Change in Mental Status Sepsis Action Taken by Nursing 06/05/24 15:09 06/05/24 15:30 06/05/24 18:47 Temperature Temperature Source Pulse Rate 74 Pulse Rate [Apical] 73 86 Pulse Rate from SpO2 Sensor Respiratory Rate 18 18 Respiratory Effort / Characteristics Non-Labored Spontaneous Non-Labored Spontaneous Respiratory Depth Normal Normal Blood Pressure Blood Pressure [Left Arm] 108/60 133/97 Blood Pressure Mean Blood Pressure Mean [Left Arm] 76 109 Blood Pressure Position [Left Arm] Lying Lying Pulse Oximetry 94 94 Oxygen Delivery Method Room Air Room Air Sepsis Recent Fever Within 48 Hours Sepsis New/Unexplained Change in Mental Status Sepsis Action Taken by Nursing 06/05/24 19:01 Temperature Temperature Source Pulse Rate 84 Pulse Rate [Apical] Pulse Rate from SpO2 Sensor Respiratory Rate Respiratory Effort / Characteristics Respiratory Depth Blood Pressure Blood Pressure [Left Arm] Blood Pressure Mean Blood Pressure Mean [Left Arm] Blood Pressure Position [Left Arm] Pulse Oximetry Oxygen Delivery Method Sepsis Recent Fever Within 48 Hours Sepsis New/Unexplained Change in Mental Status Sepsis Action Taken by Nursing Laboratory Data Attestation: I reviewed the patient's lab results. 06/05/24 10:52 06/05/24 10:52 Lab Results 06/05/24 06/05/24 Range/Units 10:52 11:17 WBC 10.55 (4.8-10.8) K/ul RBC 4.04 L (4.20-5.40) M/uL Hgb 12.7 (12.0-16.0) g/dl Hct 38.8 (37.0-47.0) % MCV 96.0 (80.0-100.0) fL MCH 31.4 (25.0-34.0) pg MCHC 32.7 (32.0-36.0) g/dL RDW Std Deviation 47.5 H (36.4-46.3) fL RDW Coeff of Karla 13.2 (11.5-14.5) % Plt Count 118 L (130-400) K/uL MPV 12.3 (9.4-12.4) fL Immature Gran % (Auto) 0.8 % Neut % (Auto) 88.0 % Lymph % (Auto) 3.9 % Hart % (Auto) 7.2 % Eos % (Auto) 0.0 % Baso % (Auto) 0.1 % Neut # (Auto) 9.29 H (1.40-6.50) K/uL Lymph # (Auto) 0.41 L (1.20-3.40) K/uL Hart # (Auto) 0.76 H (0.11-0.59) K/uL Eos # (Auto) 0.00 (0.00-0.50) K/uL Baso # (Auto) 0.01 (0.00-0.20) K/uL Immature Gran # (Auto) 0.08 (0.01-0.20) K/uL PT 10.9 (9.0-12.0) Seconds INR 1.0 (0.9-1.1) Sodium 135 L (136-145) mmol/L Potassium 3.7 (3.5-5.1) mmol/L Chloride 102 (98-107) mmol/L Carbon Dioxide 26 (21-32) mmol/L Anion Gap 7 (3-11) BUN 21 (6-23) mg/dl Creatinine 0.69 (0.6-1.2) mg/dl Est Cr Clr Drug Dosing 60.8 ml/min eGFR 87.68 BUN/Creatinine Ratio 30.4 H (10-20) Glucose 123 H (70-99(Fasting)) mg/dl Calcium 9.6 (8.6-10.3) mg/dl Total Bilirubin 3.1 H (0.2-1.0) mg/dl AST 13 (13-39) U/L ALT 20 (7-52) U/L Alkaline Phosphatase 122 H (34-104) U/L Troponin I High Sens 2.8 (0-14) pg/ml Total Protein 6.6 (6.0-8.3) gm/dl Albumin 3.9 (3.4-5.0) gm/dl Globulin 2.7 (2.5-4.0) gm/dl Albumin/Globulin Ratio 1.4 (0.9-2) Lipase 7 L (11-82) U/L Adenovirus (PCR) Not Detected (NotDetected) B. pertussis DNA (PCR) Not Detected (NotDetected) B.parapertussis DNA PCR Not Detected (NotDetected) C. pneumoniae DNA (PCR) Not Detected (NotDetected) Coronavirus OC43 (PCR) Not Detected (NotDetected) Coronavirus HKU1 (PCR) Not Detected (NotDetected) Coronavirus 229E (PCR) Not Detected (NotDetected) SARS-CoV-2 (PCR) Not Detected (NotDetected) Coronavirus NL63 (PCR) Not Detected (NotDetected) Human Metapneumovir PCR Not Detected (NotDetected) Influenza Type A (PCR) Not Detected (NotDetected) Influenza Type B (PCR) Not Detected (NotDetected) M. pneumoniae (PCR) Not Detected (NotDetected) Parainfluenza 1 (PCR) Not Detected (NotDetected) Parainfluenza 2 (PCR) Not Detected (NotDetected) Parainfluenza 3 (PCR) Not Detected (NotDetected) Parainfluenza 4 (PCR) Not Detected (NotDetected) RSV (PCR) Not Detected (NotDetected) Entero/Rhino (PCR) Not Detected (NotDetected) Administered Medications Flecainide Acetate (Flecainide Acetate 100 Mg Tablet) 100 mg PO BID JOSE M Stop: 07/05/24 23:06 Last Admin: 06/06/24 00:53 Dose: 100 mg Documented By: DELMER Lactated Ringer's (Lr) 1,000 mls @ 80 mls/hr IV .[id number] JOSE M Stop: 06/06/24 12:29 Last Admin: 06/06/24 00:54 Dose: 80 mls/hr Documented By: DELMER Discontinued Medications Sodium Chloride (Nss) 500 mls @ 999 mls/hr IV .Q31M ONE Stop: 06/05/24 11:44 Last Infusion: 06/05/24 12:00 Dose: Infused Documented By: Admin: 06/05/24 11:20 Dose: 999 mls/hr Documented By: NOVA Acetaminophen (Ofirmev) 1,000 mg in 100 mls @ 400 mls/hr IV NOW STA Stop: 06/05/24 11:28 Last Infusion: 06/05/24 12:00 Dose: Infused Documented By: Admin: 06/05/24 11:29 Dose: 400 mls/hr Documented By: NOVA Ioversol (Optiray 320 100ml) 94 ml IV ONCE ONE Stop: 06/05/24 11:45 Last Admin: 06/05/24 11:44 Dose: 94 ml Documented By: CHICO Lorazepam (Lorazepam 1 Mg Tab) 0.5 mg SL NOW STA Stop: 06/05/24 16:48 Last Admin: 06/05/24 16:49 Dose: 0.5 mg Documented By: CC Imaging Data Radiologist's Impression: Hip/Pelvis X-Ray 06/05/24 13:12 XR hips AMY 1v w pelvis CLINICAL HISTORY: eval pubic fx COMPARISON: CT of the abdomen and pelvis performed earlier today. Right hip radiographs April 11, 2024. FINDINGS: Incidental note is made of contrast within the bladder from recent contrast-enhanced CT. Comminuted mildly displaced fractures of the medial left pubic bone are present. These are subacute to acute. There is no left hip fracture. The sclerosis within the intertrochanteric portion of the right femur on CT is not well-visualized by radiography. A lucency within the intertrochanteric portion of the right femur is noted on this exam. No corresponding lucency was identified on the CT. IMPRESSION: 1. Comminuted mildly displaced fractures of the medial left pubic bone. These fractures are likely acute to subacute. 2. Findings suggestive of a subacute healing nondisplaced intertrochanteric fracture of the right femur, better depicted on CT performed earlier today. ACT 112: Negative or not required by law. Electronically signed by: Aly Paredes M.D. 06/05/2024 3:14 PM Pelvis MRI 06/05/24 15:44 MRI PELVIS WITHOUT CONTRAST TECHNIQUE: An MRI examination of the pelvis was performed utilizing sagittal and axial T1-weighted images as well as axial T2-weighted, FLAIR, gradient echo and diffusion-weighted images. INDICATION: Trauma COMPARISON: None FINDINGS: There are acute to subacute traumatic left superior and inferior pubic rami fractures. There is diffuse edema signal involving the sacral ala bilaterally. Also there is serpiginous edema signal in the intertrochanteric region of the left femur Over the adductor muscle group on the left side, there is a multiseptated fluid collection measuring 6.0 cm. There are small fluids posteriorly to the iliacus muscles Uterine mass, likely a fibroid. IMPRESSION: Acute to subacute traumatic left superior and inferior pubic rami fractures. Diffuse marrow edema signal of the sacral ala bilaterally may represent combination of acute to subacute traumatic and insufficiency fractures although other processes including neoplastic process would be difficult to exclude in the proper clinical context. Faint serpiginous edema signal over the intertrochanteric right femur could represent additional nondisplaced acute traumatic fracture. If warranted for the evaluation with CT may be obtained. 6.0 cm fluid collection over the left adductor muscle groups is likely an intramuscular hematoma Small retroperitoneal hematomas with small fluid seen posteriorly to the iliacus muscles bilaterally. Electronically signed by Maxi Thorpe 06-05-2024 9:22 PM Discharge Plan Visit Data Chief Complaint: Back Injury/Pain ED Provider: Patel Gómez Discharge Problem: Closed right hip fracture, Fracture of left superior pubic ramus with routine healing, Recurrent falls, Ambulatory dysfunction Patient Disposition: Admitted As Inpatient Discharge Instructions Interventions: ED Discharge Assessment Last Done: 06/05/24 22:44 Discharge Problem: Closed right hip fracture Qualifiers: Encounter type: initial encounter Qualified Code(s): S72.001A - Fracture of unspecified part of neck of right femur, initial encounter for closed fracture Fracture of left superior pubic ramus with routine healing Qualifiers: Fracture type: closed Qualified Code(s): S32.512D - Fracture of superior rim of left pubis, subsequent encounter for fracture with routine healing
--- NOTE | 2024-06-05 13:12 | Electrocardiogram Report ---
Test Reason : Blood Pressure : */* mmHG Vent. Rate : 70 BPM Atrial Rate : 70 BPM P-R Int : 186 ms QRS Dur : 116 ms QT Int : 404 ms P-R-T Axes : 64 -1 22 degrees QTcB Int : 436 ms Normal sinus rhythm with sinus arrhythmia Minimal voltage criteria for LVH, may be normal variant Nonspecific ST and T wave abnormality Abnormal ECG When compared with ECG of 06-May-2024 12:04, RI interval has decreased Borderline criteria for Anterior infarct are no longer Present Confirmed by Ranulfo Rodriguez ([id number]) on 06/05/2024 1:12:00 PM Referred By: Confirmed By: Ranulfo Rodriguez
--- NOTE | 2024-06-05 15:17 | XRay Report ---
XR hips AMY 1v w pelvis CLINICAL HISTORY: eval pubic fx COMPARISON: CT of the abdomen and pelvis performed earlier today. Right hip radiographs April 11, 2024. FINDINGS: Incidental note is made of contrast within the bladder from recent contrast-enhanced CT. C omminuted mildly displaced fractures of the medial left pubic bone are present. These are subacute to acute. There is no left hip fracture. The sclerosis within the intertrochanteric portion of the righ t femur on CT is not well-visualized by radiography. A lucency within the intertrochanteric portion o f the right femur is noted on this exam. No corresponding lucency was identified on the CT. IMPRESSION: 1. Comminuted mildly displaced fractures of the medial left pubic bone. These fractures are likely ac tere to subacute. 2. Findings suggestive of a subacute healing nondisplaced intertrochanteric fracture of the right fem ur, better depicted on CT performed earlier today. ACT 112: Negative or not required by law. Electronically signed by: Aly Paredes M.D. 06/05/2024 3:14 PM
[2024-06-05] MEDS: LORazepam 1 MG TAB SL STA (16:49)
--- NOTE | 2024-06-05 19:07 | Orthopedic Consultation ---
Date of Consultation June 05, 2024 Assessment & Plan (1) Recurrent falls: (2) Closed right hip fracture: (3) Fracture of left superior pubic ramus with routine healing: (4) Degenerative disc disease, lumbar: (5) Bilateral sacroiliitis: (6) Stroke-like symptom: (7) Grief reaction: (8) Anxiety: (9) Vitamin D deficiency: (10) Hypertension: (11) PAF (paroxysmal atrial fibrillation): Plan Misty is an 79-year-old female who presents to the hospital today primarily for ambulatory dysfunction. Gathering history from the patient is quite difficult as she is demented and the patient's daughter was invaluable at filling in the history. Patient's daughter noted that falls for her started sometime in late March, and based on review of the x-rays from previous, I do suspect that she sustained insufficiency fractures of her pubic ramus at that time. On reviewing these films, I do not see evidence of a right intertrochanteric hip fracture. The patient presented to the hospital primarily for ambulatory dysfunction. Her workup included a CT of the abdomen and pelvis and on this CT scan there was evidence of pubic ramus fractures. This is the primary reason for orthopedic consultation. I did review the patient's films this afternoon and was concerned about the potential for a right intertrochanteric hip fracture. I requested x- rays which also elucidate a fracture line in the intertrochanteric region of the right hip, and based on the patient's history of being able to walk as recently as the end of last week without any known falls over the weekend, I did think that an MRI was reasonable to help to ascertain the chronicity of this fracture. Based on my review of the MRI, there is T2 hyperintensity within the intertrochanteric region, however I am unsure if this is a complete fracture or not. Based on the CT scan and x-rays, I do think that this is indeed a fracture, and because of this my recommendation for the patient and her daughter is for surgical stabilization with a cephalomedullary nail. The patient's daughter and the patient were quite hesitant about this because she seems to be in no pain in her right hip. Additionally, I am somewhat confused as the patient's physical exam does not exactly match her imaging findings. I would suspect that her heel strike and logroll would be positive on the right hip, but they are certainly not. At this point I think we have 2 options moving forward. One option would be for stabilization of the right intertrochanteric region of the femur in case this does represent an acute fracture. I explained to the patient's daughter that there are risks associated with surgery including but not limited to loss of life/limb, DVT, incomplete relief of pain, nonunion, malunion, hardware, cage, hardware failure. But I explained that the benefit of this would be to ensure that the hip is stabilized to allow the patient to bear weight. The second option would be for trial of ambulation with repeat radiographs to ensure no fracture displacement of her right hip. I did explain that if the fracture does displace, this could make close reduction more challenging and may need open reduction, however considering the patient had no falls, her imaging findings may represent a subacute fracture that is healing and has been stable while the patient has been walking. The patient and her daughter note that they would like to think about these options and we will discuss further tomorrow morning. In case the patient and her daughter opt for surgical management, please keep the patient n.p.o. after midnight tonight. I do think that she should be admitted for ambulatory dysfunction and at least a trial of ambulation with repeat radiographs of her right hip to ensure no fracture displacement. History of Present Illness Reason for Consultation: ambulatory dysfunction Requesting Physician: Dr. Gómez History of Present Illness Misty is an 79-year-old female who is pleasantly demented who presents to the hospital today with her daughter. Per the patient and her daughter, the patient has had a series of falls over the last few months. The primary reason for presenting to the hospital today is due to the inability to ambulate over the course of the last 3 to 4 days. The patient and her daughter note that she has been primarily complaining of back and lower abdominal pain as the reason that she cannot ambulate. Neither the patient nor her daughter know if she sustained any falls over the course of the last weekend, but the patient's daughter states that it is "entirely possible". The patient did apparently sustain a fall around [place] time and was seen in outside facility where she was told x-rays were negative. She has been walking since that time. Allergies Allergy/AdvReac Type Severity Reaction Status Date / Time Penicillins Allergy Mild HIVES Verified 05/30/24 11:28 Home Medications Medication Instructions Recorded Confirmed Type cholecalciferol (vitamin D3) 50 2,000 unit PO DAILY 05/23/20 06/05/24 History mcg (2,000 unit) capsule apixaban 5 mg tablet (Eliquis) 5 mg PO BID #180 tabs 05/25/22 06/05/24 Rx flecainide 100 mg tablet 100 mg PO BID 05/06/24 06/05/24 History metoprolol succinate 25 mg 12.5 mg PO DAILY 05/06/24 06/05/24 History tablet,extended release 24 hr (Toprol XL) hydrocodone 5 mg-acetaminophen 325 1 tab PO Q6H PRN Pain 05/18/24 06/05/24 History mg tablet lorazepam 0.5 mg tablet 0.5 mg PO DAILY PRN Other 06/05/24 06/05/24 History Patient History Medical History Facial droop Surgical History History of repair of rotator cuff History of knee replacement History of foot surgery History of cataract surgery Family History Father Myocardial infarction Mother Alcohol abuse Father Cardiac disorder Myocardial infarction Family/Other Breast cancer Heart disease Denies family history of Ovarian cancer Prostate cancer Colorectal cancer Social History Smoking Status: Former smoker Tobacco Type: Cigarettes Age Started Using Tobacco: 15; Age Quit Using Tobacco: 35; packs per day: 0.5; Cigarettes Per Day: 10; Second Hand Exposure: No; Do You Dip or Chew Tobacco: No; Hx Alcohol Use: No Hx Substance Use: No Preferred Language: Arabic Communication Ability: Effective Visual Impairment: No Limitations Hearing Ability: Normal Heliotherapist Required: No Beliefs That Will Affect Care: None marital status: / Current Living Situation: Alone Current Living Situation Comment: [place] current occupational status: retired current occupation: was a homemaker Feels Safe at Home: Yes Childhood Exposure to Second-Hand Smoke: Yes Diet: regular Dental Care, Regularly: Yes Physical Activity Frequency: Does not Exercise Seatbelt Use: always Sunscreen Use: Yes Assistive Devices: Glasses and Walker Review of Systems Review of Systems: All systems reviewed & are unremarkable except as noted in HPI & below Physical Exam Physical Exam: On physical examination of the patient's pelvis and right lower extremity, she has negative heel strike and negative logroll test. She does have some pain to palpation along her superior pubic ramus and at her right hip. She denies any groin pain with hip range of motion. Results & Data Vital Signs (Past 12 Hours) Vital Signs Temp Pulse Pulse Resp BP BP Pulse Ox 06/05/24 19:01 84 06/05/24 18:47 86 18 133/97 94 06/05/24 15:30 73 18 108/60 94 06/05/24 15:09 74 06/05/24 15:00 130/66 06/05/24 14:54 74 22 06/05/24 14:42 76 20 06/05/24 14:12 76 19 97 06/05/24 14:00 76 19 06/05/24 14:00 116/69 06/05/24 14:00 76 18 140/88 97 06/05/24 13:51 79 18 06/05/24 13:42 75 21 96 06/05/24 13:33 67 21 06/05/24 13:30 122/74 06/05/24 13:30 122/74 06/05/24 13:27 69 23 06/05/24 13:06 77 20 06/05/24 13:00 141/78 H 06/05/24 12:35 70 20 119/74 98 06/05/24 12:30 119/74 06/05/24 12:18 79 20 95 06/05/24 12:15 72 21 92 06/05/24 12:00 125/66 06/05/24 12:00 125/66 06/05/24 11:57 72 18 97 06/05/24 11:54 71 26 H 94 06/05/24 11:30 79 21 97 06/05/24 11:30 125/68 06/05/24 11:30 125/68 06/05/24 11:19 75 17 96 06/05/24 11:12 80 25 H 96 06/05/24 11:06 82 06/05/24 11:00 76 24 98 06/05/24 11:00 119/64 06/05/24 11:00 119/64 06/05/24 10:56 84 19 119/64 06/05/24 10:56 36.9 C 77 20 138/72 97 06/05/24 10:45 138/72 O2 Del Method 06/05/24 19:01 06/05/24 18:47 Room Air 06/05/24 15:30 Room Air 06/05/24 15:09 06/05/24 15:00 06/05/24 14:54 06/05/24 14:42 06/05/24 14:12 06/05/24 14:00 06/05/24 14:00 06/05/24 14:00 Room Air 06/05/24 13:51 06/05/24 13:42 06/05/24 13:33 06/05/24 13:30 06/05/24 13:30 06/05/24 13:27 06/05/24 13:06 06/05/24 13:00 06/05/24 12:35 06/05/24 12:30 06/05/24 12:18 06/05/24 12:15 06/05/24 12:00 06/05/24 12:00 06/05/24 11:57 06/05/24 11:54 06/05/24 11:30 06/05/24 11:30 06/05/24 11:30 06/05/24 11:19 Room Air 06/05/24 11:12 06/05/24 11:06 06/05/24 11:00 06/05/24 11:00 06/05/24 11:00 06/05/24 10:56 06/05/24 10:56 Room Air 06/05/24 10:[address] pelvis, x-rays of the bilateral hips and pelvis obtained today were personally interpreted and reviewed. These demonstrate subacute pubic ramus fractures on the left near the pubic symphysis as well as a right intertrochanteric hip fracture. The chronicity of the intertrochanteric hip fracture is difficult to ascertain. Previously obtained x-rays of the hips from 04/11 have been imported to our system and personally interpreted and reviewed. These demonstrate nondisplaced left superior and inferior pubic ramus fractures. No evidence of right intertrochanteric hip fracture on these films. (4) Degenerative disc disease, lumbar Disc-related pain type: discogenic back pain only Qualified Code(s): M51.360 - Other intervertebral disc degeneration, lumbar region with discogenic back pain only
--- NOTE | 2024-06-05 19:33 | History & Physical Report ---
Date of Service June 05, 2024 Assessment & Plan (1) Ambulatory dysfunction: (2) Closed right hip fracture: (3) Fracture of left superior pubic ramus with routine healing: (4) Elevated bilirubin: Plan 79-year-old female PMHx DDD of the lumbar region, anxiety, depression, vitamin D deficiency, HTN, and PAF on apixaban presenting to ED from [facility] for AMS, back pain, and abdominal pain. Patient is demented so history is limited, but daughter provides the history that she is aware of. Increased amount of falls started in late March, daughter states that since Jun 02, increased difficulty with ambulating. Since then, more difficulties with ambulating. Labs revealed no evidence of infection, sodium 135, BUN/creatinine ratio 30.4, total bilirubin 3.1 with alkaline phosphatase 122. Hip pelvis x-ray bilateral is comminuted, displaced fracture of the medial left pubic bone, acute to subacute and findings also suggestive of subacute healing nondisplaced intratrochanteric fracture of the R femur. CTAP sclerosis within intertrochanteric portion of R femur suggestive of subacute healing nondisplaced fracture, comminuted mildly displaced medial L pubic bone fracture with adjacent bone fragment/callus formation subacute or subacute, no additional acute findings. Pending official pelvis MRI read. #Ambulatory dysfunction/? closed R hip fx/fx L superior pubic ramus Pt presenting for worsening ambulatory dysfunction which has been ongoing since March 2024, acute worsening 06/02/2024. Patient reports history of falls but is unable to remember how she landed or why she fell. Having significant abdominal pain and lumbar back pain, radiating to bilateral groin. Unable to stand independently. Uses a rollator at baseline. - CBC without evidence of infection, CMP with sodium 135 BUN/creatinine ratio - repeat AM; pending UA - XR commuted, displaced fracture of the medial mall pubic bone acute/subacute finding, acute healing nondisplaced intertrochanteric fracture R femur; CTAP intertrochanteric portion of R femur suggestive of subacute healing nondisplaced fracture, comminuted and mildly displaced medial L pubic bone fracture and adjacent fragment/callus formation; pending official MRI pelvis read - Continue IVF maintenance LR @ 80 mL/hr x 1L; symptomatic management as ordered - Ortho consulted - discussed with patient's option of surgical intervention versus trial of ambulation with repeat radiographs; daughter is still determining best course of action, however, will medically clear/prep the patient for surgical intervention if it is decided to go this route. -- Appreciate ortho input and recs - Given uncertainty of whether or not surgical intervention will take place, fracture order set NOT utilized at time of admission - PT/OT consulted- appreciate input + recs #Elevated bilirubin Patient complaining of some abdominal pain at time of admission, mainly localized to LLQ, but CTAP findings without acute findings in the abdomen itself. Did have elevated bilirubin readings in the past. - Bilirubin elevated to 3.1; previously peaked at 3.2; CTAP without acute findings; no tenderness RUQ - Trend in a.m. #Anxiety- Lorazepam daily, continue #HTN- Metoprolol daily, continue #PAF- Rate controlled, on Eliquis and flecainide- HOLD Eliquis for anticipation of surgical intervention Dispo: Admit, med/sx VTE Prophylaxis: Eliquis, HOLD in anticipation for surgery This document was dictated utilizing [employer]. Please excuse any grammatical errors that may be secondary to use of this software. Admission and Anticipated Discharge Date Admission Date: 06/05/2024 History of Present Illness Chief Complaint: Ambulatory dysfunction Primary Care Provider: Aamir Chris MD 79-year-old female PMHx DDD of the lumbar region, anxiety, depression, vitamin D deficiency, HTN, and PAF on apixaban presenting to ED from [facility] for AMS, back pain, and abdominal pain. Patient is demented so history is limited, but daughter provides the history that she is aware of. Increased amount of falls started in late March, daughter states that since Jun 02, increased difficulty with ambulating. Since then, more difficulties with ambulating. Decided to come to hospital today for abdominal pain mainly at LLQ, radiating to groin. Patient feels that when she is trying to sit upright, the pain is more noticeable. Has been unable to get herself to walk to the bathroom or stand independently. States that she has had multiple falls in the past, 3 of which she remembers but the fourth 1 he states that "no one can remember where I fell." Patient is unable to qualify the severity of pain, but she states that it was excruciating at the time of onset. No associated symptoms of N/V/D/C. Does have occasional constipation. Denies fever/chills, chest pain, SOB, palpitation, LUTS, or numbness/tingling. ED evaluation reveals no evidence of infection, sodium of 135, BUN/creatinine 30.4, total bilirubin 3.1, and alkaline phosphatase 122. Lipase was WNL. UA pending. BioFire negative. Hip pelvis x- ray bilateral is comminuted, displaced fracture of the medial left pubic bone, acute to subacute and findings also suggestive of subacute healing nondisplaced intratrochanteric fracture of the R femur. CTAP sclerosis within intertrochanteric portion of R femur suggestive of subacute healing nondisplaced fracture, comminuted mildly displaced medial L pubic bone fracture with adjacent bone fragment/callus formation subacute or subacute, no additional acute findings. Pending official pelvis MRI read. Provided with NSS 500 mL, lorazepam 0.5 mg, and acetaminophen 1 [address] IV[address] Please see Dr[address] Marion's attestation for adjustments/additions to treatment plan. Allergies Allergy/AdvReac Type Severity Reaction Status Date / Time Penicillins Allergy Mild HIVES Verified 05/30/24 11:28 Home Medications Medication Instructions Recorded Confirmed Type cholecalciferol (vitamin D3) 50 2,000 unit PO DAILY 05/23/20 06/05/24 History mcg (2,000 unit) capsule apixaban 5 mg tablet (Eliquis) 5 mg PO BID #180 tabs 05/25/22 06/05/24 Rx flecainide 100 mg tablet 100 mg PO BID 05/06/24 06/05/24 History metoprolol succinate 25 mg 12.5 mg PO DAILY 05/06/24 06/05/24 History tablet,extended release 24 hr (Toprol XL) hydrocodone 5 mg-acetaminophen 325 1 tab PO Q6H PRN Pain 05/18/24 06/05/24 History mg tablet lorazepam 0.5 mg tablet 0.5 mg PO DAILY PRN Other 06/05/24 06/05/24 History Past Med/Surg History Problem List Recurrent falls (Acute) Closed right hip fracture (Acute) Ambulatory dysfunction Fracture of left superior pubic ramus with routine healing (Acute) Closed right hip fracture Degenerative disc disease, lumbar Bilateral sacroiliitis Stroke-like symptom (Acute) Recurrent falls Elevated bilirubin Stroke-like symptoms Fracture of metatarsal of right foot, closed (Acute) Fracture of triquetral bone of right wrist (Acute) Hypertrophic toenail Bilateral ankle pain Grief reaction Anxiety [place] disease Hypertension Vitamin D deficiency Insomnia Thrombocytopenia Enlarged thyroid Thyroid Nodule PAF (paroxysmal atrial fibrillation) Diastolic dysfunction Degenerative arthritis of right knee Medical History Facial droop Surgical History History of repair of rotator cuff History of knee replacement History of foot surgery History of cataract surgery Family History Father Myocardial infarction Mother Alcohol abuse Father Cardiac disorder Myocardial infarction Family/Other Breast cancer Heart disease Denies family history of Ovarian cancer Prostate cancer Colorectal cancer Social History Smoking Status: Former smoker Tobacco Type: Cigarettes Age Started Using Tobacco: 15; Age Quit Using Tobacco: 35; packs per day: 0.5; Cigarettes Per Day: 10; Second Hand Exposure: No; Do You Dip or Chew Tobacco: No; Hx Alcohol Use: No Hx Substance Use: No Preferred Language: Greek Communication Ability: Effective Visual Impairment: No Limitations Hearing Ability: Normal [employer] Required: No Beliefs That Will Affect Care: None marital status: / Current Living Situation: Personal Care Facility Current Living Situation Comment: [facility] current occupational status: retired current occupation: was a homemaker Feels Safe at Home: Yes Childhood Exposure to Second-Hand Smoke: Yes Diet: regular Dental Care, Regularly: Yes Physical Activity Frequency: Does not Exercise Seatbelt Use: always Sunscreen Use: Yes Assistive Devices: Glasses and Walker Review of Systems Review of Systems: Unobtainable due to cognitive status Physical Exam Physical Exam: General: No acute distress Skin: Warm and dry Head: Normocephalic, atraumatic Eyes: PERRL, conjunctivae clear, sclera non-icteric; EOM intact ENT: External ear and ear canal without swelling; nose atraumatic; good dentition, tongue normal appearance, pharynx normal Neck: Supple, no LAD; no JVD Cardio: RRR, no M/G/R, S1 and S2 normal Resp: No respiratory distress, Lungs CTA in all lobes bilaterally, no wheezes, rales, or rhonchi Abdomen: Soft, symmetric, mild tenderness LLQ, no additional tenderness. No guarding; No visible lesions or scars; no distention; No masses or hepatosplenomegaly; Bowel sounds normoactive MSK: No deformities, full ROM throughout; pulses palpable and equal; no edema. Neuro: Awake, alert; Muscle strength 4/5 bilaterally in UE/LE; Sensation intact bilaterally; CN grossly intact Psych: Pleasantly demented. Daughter, Cindy, is present in room at time of visit. Results & Data Results & Data Vital Signs (Past 12 Hours) Vital Signs Temp Pulse Pulse Resp BP BP Pulse Ox 06/05/24 19:01 84 06/05/24 18:47 86 18 133/97 94 06/05/24 15:30 73 18 108/60 94 06/05/24 15:09 74 06/05/24 15:00 130/66 06/05/24 14:54 74 22 06/05/24 14:42 76 20 06/05/24 14:12 76 19 97 06/05/24 14:00 76 19 06/05/24 14:00 116/69 06/05/24 14:00 76 18 140/88 97 06/05/24 13:51 79 18 06/05/24 13:42 75 21 96 06/05/24 13:33 67 21 06/05/24 13:30 122/74 06/05/24 13:30 122/74 06/05/24 13:27 69 23 06/05/24 13:06 77 20 06/05/24 13:00 141/78 H 06/05/24 12:35 70 20 119/74 98 06/05/24 12:30 119/74 06/05/24 12:18 79 20 95 06/05/24 12:15 72 21 92 06/05/24 12:00 125/66 06/05/24 12:00 125/66 06/05/24 11:57 72 18 97 06/05/24 11:54 71 26 H 94 06/05/24 11:30 79 21 97 06/05/24 11:30 125/68 06/05/24 11:30 125/68 06/05/24 11:19 75 17 96 06/05/24 11:12 80 25 H 96 06/05/24 11:06 82 06/05/24 11:00 76 24 98 06/05/24 11:00 119/64 06/05/24 11:00 119/64 06/05/24 10:56 84 19 119/64 06/05/24 10:56 36.9 C 77 20 138/72 97 06/05/24 10:45 138/72 O2 Del Method 06/05/24 19:01 06/05/24 18:47 Room Air 06/05/24 15:30 Room Air 06/05/24 15:09 06/05/24 15:00 06/05/24 14:54 06/05/24 14:42 06/05/24 14:12 06/05/24 14:00 06/05/24 14:00 06/05/24 14:00 Room Air 06/05/24 13:51 06/05/24 13:42 06/05/24 13:33 06/05/24 13:30 06/05/24 13:30 06/05/24 13:27 06/05/24 13:06 06/05/24 13:00 06/05/24 12:35 06/05/24 12:30 06/05/24 12:18 06/05/24 12:15 06/05/24 12:00 06/05/24 12:00 06/05/24 11:57 06/05/24 11:54 06/05/24 11:30 06/05/24 11:30 06/05/24 11:30 06/05/24 11:19 Room Air 06/05/24 11:12 06/05/24 11:06 06/05/24 11:00 06/05/24 11:00 06/05/24 11:00 06/05/24 10:56 06/05/24 10:56 Room Air 06/05/24 10:45 Laboratory Results 06/05/24 06/05/24 11:17 10:52 WBC 10.55 RBC 4.04 L Hgb 12.7 Hct 38.8 MCV 96.0 MCH 31.4 MCHC 32.7 RDW Std Deviation 47.5 H RDW Coeff of Karla 13.2 Plt Count 118 L MPV 12.3 Immature Gran % (Auto) 0.8 Neut % (Auto) 88.0 Lymph % (Auto) 3.9 [place] % (Auto) 7.2 Eos % (Auto) 0.0 Baso % (Auto) 0.1 Neut # (Auto) 9.29 H Lymph # (Auto) 0.41 L [place] # (Auto) 0.76 H Eos # (Auto) 0.00 Baso # (Auto) 0.01 Immature Gran # (Auto) 0.08 PT 10.9 INR 1.0 Sodium 135 L Potassium 3.7 Chloride 102 Carbon Dioxide 26 Anion Gap 7 BUN 21 Creatinine 0.69 Est Cr Clr Drug Dosing 60.8 eGFR 87.68 BUN/Creatinine Ratio 30.4 H Glucose 123 H Calcium 9.6 Total Bilirubin 3.1 H AST 13 ALT 20 Alkaline Phosphatase 122 H Troponin I High Sens 2.8 Total Protein 6.6 Albumin 3.9 Globulin 2.7 Albumin/Globulin Ratio 1.4 Lipase 7 L Adenovirus (PCR) Not Detected B. pertussis DNA (PCR) Not Detected B.parapertussis DNA PCR Not Detected C. pneumoniae DNA (PCR) Not Detected Coronavirus OC43 (PCR) Not Detected Coronavirus HKU1 (PCR) Not Detected Coronavirus 229E (PCR) Not Detected SARS-CoV-2 (PCR) Not Detected Coronavirus NL63 (PCR) Not Detected Human Metapneumovir PCR Not Detected Influenza Type A (PCR) Not Detected Influenza Type B (PCR) Not Detected M. pneumoniae (PCR) Not Detected Parainfluenza 1 (PCR) Not Detected Parainfluenza 2 (PCR) Not Detected Parainfluenza 3 (PCR) Not Detected Parainfluenza 4 (PCR) Not Detected RSV (PCR) Not Detected Entero/Rhino (PCR) Not Detected Diagnostic Findings Abdomen/Pelvis CT 06/05/24 11:12 CT OF THE ABDOMEN AND PELVIS WITH CONTRAST CLINICAL HISTORY: Abdominal and back pain. COMPARISON STUDY: CT of the abdomen and pelvis October 01, 2013. Lumbar spine radiographs May 02, 2024. Right hip radiographs April 11, 2024. CT of the abdomen and pelvis May 12, 2023. TECHNIQUE: Following IV administration of 94 mL of Optiray, axial images of the abdomen and pelvis were obtained from the lung bases to the proximal femurs. Images were reviewed in the axial, sagittal, and coronal planes. IV contrast was administered without complication. Automated exposure control was utilized for the study. A dose lowering technique was utilized adhering to the principles of ALARA. CT DOSE: 1162.48 mGy.cm FINDINGS: Visualized portions of the lung bases are unremarkable. There is no pneumatosis, free air or portal venous gas. The liver, spleen, adrenal glands and pancreas are unremarkable. There is no biliary or pancreatic ductal dilatation. Multiple nonobstructing bilateral renal calculi measure up to 5 mm. There are no ureteral calculi. There is no hydronephrosis. A 6.6 cm left sided fibroid is unchanged. There is no evidence for a bowel obstruction. Note is made of colonic diverticulosis without evidence for acute diverticulitis. Moderate anterior left pelvic stranding is centered upon comminuted mildly displaced fractures of the medial left pubic bone. There is also stranding within the left groin. Multiple associated bone fragments are present. There is also an associated multiloculated fluid collection within the left adductor musculature which measures 3.6 x 2.7 cm. This collection contains ossific/calcific material. Subtle sclerosis of the intertrochanteric portion of the right femur is new since prior CT. There are healing bilateral sacral ala insufficiency fractures. No lumbar spine fractures are present. IMPRESSION: 1. Sclerosis within the intertrochanteric portion of the right femur which is new since CT of May 12, 2023. This is suggestive of a subacute healing nondisplaced fracture. Orthopedic consultation is recommended 2. Comminuted mildly displaced medial left pubic bone fractures with adjacent bone fragments/callus formation. Moderate adjacent stranding. Therefore, these fractures are acute to subacute. Associated rim-enhancing multiloculated fluid collection within the left adductor musculature which measures 3.7 x 2.7 cm. 3. Healing bilateral sacral insufficiency fractures. 4. Bilateral nephrolithiasis. No ureteral calculi. No hydronephrosis. 5. No bowel obstruction. No bowel wall thickening. 6. Colonic diverticulosis. No evidence for acute diverticulitis. ACT 112: Negative or not required by law. Electronically signed by: Aly Paredes M.D. 06/05/2024 12:13 PM Hip/Pelvis X-Ray 06/05/24 13:12 XR hips AMY 1v w pelvis CLINICAL HISTORY: eval pubic fx COMPARISON: CT of the abdomen and pelvis performed earlier today. Right hip radiographs April 11, 2024. FINDINGS: Incidental note is made of contrast within the bladder from recent contrast-enhanced CT. Comminuted mildly displaced fractures of the medial left pubic bone are present. These are subacute to acute. There is no left hip fracture. The sclerosis within the intertrochanteric portion of the right femur on CT is not well-visualized by radiography. A lucency within the intertrochanteric portion of the right femur is noted on this exam. No corresponding lucency was identified on the CT. IMPRESSION: 1. Comminuted mildly displaced fractures of the medial left pubic bone. These fractures are likely acute to subacute. 2. Findings suggestive of a subacute healing nondisplaced intertrochanteric fracture of the right femur, better depicted on CT performed earlier today. ACT 112: Negative or not required by law. Electronically signed by: Aly Paredes M.D. 06/05/2024 3:14 PM ECG Additional Comments: Test Reason : Blood Pressure : */* mmHG Vent. Rate : 70 BPM Atrial Rate : 70 BPM P-R Int : 186 ms QRS Dur : 116 ms QT Int : 404 ms P-R-T Axes : 64 -1 22 degrees QTcB Int : 436 ms Normal sinus rhythm with sinus arrhythmia Minimal voltage criteria for LVH, may be normal variant Nonspecific ST and T wave abnormality Abnormal ECG When compared with ECG of 06-May-2024 12:04, FL interval has decreased Borderline criteria for Anterior infarct are no longer Present Confirmed by Ranulfo Rodriguez ([id number]) on 06/05/2024 1:12:00 PM Referred By: Confirmed By: Ranulfo Rodriguez Code Status & VTE Plan Code Status Full Supervising Physician Co-Signing Physician Notes Patient seen and examined, chart reviewed, case discussed with DOROTEO Romo and I agree with the assessment and plan as above. In brief, patient is an 79yo female presenting with worsening ambulatory dysfunction, increased falls at home. Imaging findings as above - patient with displaced fracture of the medical left pubic bone and acute to subacute intertrochanteric fracture of the right femur. Uncertain if patient is interested in surgical intervention at this time She is to discuss this option with family -PT/OT evaluation -Ortho consultation appreciated -Will hold Apixaban for now -Remainder as above PG Care Time/CCT Total # of Minutes Spent Total Time Spent with Patient: Total time spent is greater than 50% in coordination of care (as documented) at patient's floor/unit and/or counseling patient: Coding Level of Care Code 98877 INT INP/OBS CARE MIN Diagnoses Ambulatory dysfunction R26.2 Closed right hip fracture S72.001A Fracture of left superior pubic ramus with routine healing S32.512D Elevated bilirubin R17
[2024-06-05] MEDS ORDERED: HYDROCODONE/ACETAMOPHEN 5/325MG TAB PO PRN (20:25)
--- NOTE | 2024-06-05 21:22 | Magnetic Resonance Report ---
MRI PELVIS WITHOUT CONTRAST TECHNIQUE: An MRI examination of the pelvis was performed utilizing sagittal and axial T1-weighted images as well as axial T2-weighted, FLAIR, gradient echo and diffusion-weighted images. INDICATION: Trauma COMPARISON: None FINDINGS: There are acute to subacute traumatic left superior and inferior pubic rami fractures. There is diffuse edema signal involving the sacral ala bilaterally. Also there is serpiginous edema signal in the intertrochanteric region of the left femur Over the adductor muscle group on the left side, there is a multiseptated fluid collection measuring 6.0 cm. There are small fluids posteriorly to the iliacus muscles Uterine mass, likely a fibroid. IMPRESSION: Acute to subacute traumatic left superior and inferior pubic rami fractures. Diffuse marrow edema signal of the sacral ala bilaterally may represent combination of acute to subacute traumatic and insufficiency fractures although other processes including neoplastic process would be difficult to exclude in the proper clinical context. Faint serpiginous edema signal over the intertrochanteric right femur could represent additional nondisplaced acute traumatic fracture. If warranted for the evaluation with CT may be obtained. 6.0 cm fluid collection over the left adductor muscle groups is likely an intramuscular hematoma Small retroperitoneal hematomas with small fluid seen posteriorly to the iliacus muscles bilaterally. Electronically signed by Maxi Thorpe 06-05-2024 9:22 PM
[2024-06-05] MEDS ORDERED: ACETAMINOPHEN 325 MG TAB PO PRN (23:07)
[2024-06-05] MEDS ORDERED: POLYETHYLENE (MIRALAX) 17 GM PACK PO PRN (23:07)
[2024-06-05] MEDS ORDERED: ONDANSETRON INJ 2 MG/ML 2 ML VIAL IV PRN (23:07)
[2024-06-06] MEDS: FLECAINIDE ACETATE 100 MG TABLET PO SCH (00:53)
[2024-06-06] MEDS: LACTATED RINGER'S 1,000 ML IV SCH (00:54)
[2024-06-06 07:04] LABS: iSTAT Creatinine 0.7 mg/dl (0.6-1.3); iSTAT Hemoglobin 11.6 g/dl (12.0-16.0); iSTAT Ionized Calcium 1.19 mmol/l (1.12-1.32); iSTAT Potassium 3.8 mmol/L (3.3-5.0)
[2024-06-06 07:47] LABS: Appearance Urine Clear (Clear); Bacteria Urine Automated None Seen (None Seen); Bilirubin Urine Negative (Negative); Blood Urine Negative (Negative); Cast Urine Automated 0-2 /lpf (0-2); Color Urine Dark Yellow; Epithelial Cell Urine Auto 0-2 /hpf (0-2); Glucose Urine UA Negative (Negative); Ketones Urine Trace (Negative); Leukocyte Esterase Urine Trace (Negative); Nitrite Urine Negative (Negative); Protein Urine Trace (Negative); RBC Urine Automated 0-2 /hpf (0-2); Specific Gravity Urine 1.034 (1.000-1.030); Urobilinogen Urine Negative (Negative); WBC Urine Automated 0-5 /hpf (0-5); pH Urine 5.5 (4.5-7.5)
--- NOTE | 2024-06-06 09:00 | Orthopedic Progress Note ---
Date of Service June 06, 2024 Assessment & Plan (1) Recurrent falls: (2) Closed right hip fracture: (3) Fracture of left superior pubic ramus with routine healing: (4) Degenerative disc disease, lumbar: (5) Bilateral sacroiliitis: (6) Stroke-like symptom: (7) Grief reaction: (8) Anxiety: (9) Vitamin D deficiency: (10) Hypertension: (11) PAF (paroxysmal atrial fibrillation): Plan Misty is an 79-year-old female who presents to the hospital today primarily for ambulatory dysfunction. Gathering history from the patient is quite difficult as she is demented and the patient's daughter was invaluable at filling in the history. Patient's daughter noted that falls for her started sometime in late March, and based on review of the x-rays from previous, I do suspect that she sustained insufficiency fractures of her pubic ramus at that time. On reviewing these films, I do not see evidence of a right intertrochanteric hip fracture. The patient presented to the hospital primarily for ambulatory dysfunction over the course of the last few days. Her workup included a CT of the abdomen and pelvis and on this CT scan there was evidence of pubic ramus fractures. This is the primary reason for orthopedic consultation. I did review the patient's films this afternoon and was concerned about the potential for a right intertrochanteric hip fracture. I requested x-rays which also elucidate a fracture line in the intertrochanteric region of the right hip, and based on the patient's history of being able to walk as recently as the end of last week without any known falls over the weekend, I did think that an MRI was reasonable to help to ascertain the chronicity of this fracture. Based on my review of the MRI, there is T2 hyperintensity within the intertrochanteric region, however I am unsure if this is a complete fracture or not. Based on the CT scan and x- rays, I do think that this is indeed a fracture, and because of this my recommendation for the patient and her daughter is for surgical stabilization with a cephalomedullary nail. The patient's daughter and the patient were quite hesitant about this because she seems to be in no pain in her right hip, however the patient's ability to contribute to history gathering is obviously limited due to her mentation. At this point I think we have 2 options moving forward. One option would be for stabilization of the right intertrochanteric region of the femur in case this does represent an acute fracture. I explained to the patient's daughter that there are risks associated with surgery including but not limited to loss of life/limb, DVT, incomplete relief of pain, nonunion, malunion, hardware, cage, hardware failure. But I explained that the benefit of this would be to ensure that the hip is stabilized to allow the patient to more safebear weight. The second option would be for trial of ambulation with repeat radiographs to ensure no fracture displacement of her right hip. I did explain that if the fracture does displace, this could make close reduction more challenging and may need open reduction, however considering the patient had no known recent falls, her imaging findings may represent a subacute fracture that is healing and has been stable while the patient has been walking. I reviewed all this again with the patient's daughter this morning and reiterated that my recommendation will be for surgical stabilization. Patient's daughter notes that she is still not ready to make a decision yet, in light of this I would keep the patient n.p.o. and I will check back in with her later this morning/early afternoon. Admission and Anticipated Discharge Date Admission Date: June 05, 2024 Subjective Patient admitted overnight and she was seen and examined at bedside this morning. Her daughter is present. Patient is much more combative and upset this morning than she was last evening. She expresses that she believes that the nursing staff is trying to kill her and she wishes to leave the facility. Review of Systems Review of Systems: Unable to be obtained due to patient cognition Physical Exam Physical Exam: On physical examination of the patient's pelvis and right lower extremity, she has negative heel strike and negative logroll test. She does have some pain to palpation along her superior pubic ramus and at her right hip. She denies any groin pain with hip range of motion. Results & Data Vital Signs (Past 12 Hours) Vital Signs Temp Pulse Resp BP Pulse Ox O2 Del Method 06/06/24 08:12 36.7 C 74 18 126/75 94 Room Air 06/05/24 23:07 18 (3) Fracture of left superior pubic ramus with routine healing Fracture type: closed Qualified Code(s): S32.512D - Fracture of superior rim of left pubis, subsequent encounter for fracture with routine healing (4) Degenerative disc disease, lumbar Disc-related pain type: discogenic back pain only Qualified Code(s): M51.360 - Other intervertebral disc degeneration, lumbar region with discogenic back pain only
[2024-06-06] MEDS: METOPROLOL SUCC 25MG EXT REL TAB PO SCH (09:09)
[2024-06-06] MEDS: LORazepam 0.5 MG TAB PO PRN ×2 (09:38→17:46)
--- NOTE | 2024-06-06 10:25 | Hospitalist Progress Note ---
Date of Service June 06, 2024 Assessment & Plan (1) Ambulatory dysfunction: Plan: -closed R hip fx/fx L superior pubic ramus - daughter leaning towards conservative measure with repeat Xrays (2) Closed right hip fracture: Plan: -ortho following -pain control (3) Fracture of left superior pubic ramus with routine healing: Plan: -ortho following -pain control (4) Elevated bilirubin: Plan 79-year-old female PMHx DDD of the lumbar region, anxiety, depression, vitamin D deficiency, HTN, and PAF on apixaban presenting to ED from [facility] for AMS, back pain, and abdominal pain. Patient is demented so history is limited, but daughter provides the history that she is aware of. Increased amount of falls started in late March, daughter states that since Jun 02, increased difficulty with ambulating. Since then, more difficulties with ambulating. Labs revealed no evidence of infection, sodium 135, BUN/creatinine ratio 30.4, total bilirubin 3.1 with alkaline phosphatase 122. Hip pelvis x-ray bilateral is comminuted, displaced fracture of the medial left pubic bone, acute to subacute and findings also suggestive of subacute healing nondisplaced intratrochanteric fracture of the R femur. CTAP sclerosis within intertrochanteric portion of R femur suggestive of subacute healing nondisplaced fracture, comminuted mildly displaced medial L pubic bone fracture with adjacent bone fragment/callus formation subacute or subacute, no additional acute findings. Pending official pelvis MRI read. Admission and Anticipated Discharge Date Admission Date: June 05, 2024 Subjective Pt in delirium this am, asking questions out of context, not answering appropriately. Review of Systems Review of Systems: CONST: Negative for fever, body aches and chills. HENT: Negative for neck pain/stiffness, headache, congestion, sore throat, swelling. EYES: Negative for discharge/pain or vision changes. RESP: Negative for cough/hemoptysis and shortness of breath. CV: Negative chest pain, difficulty breathing, palpitations. ABD: Negative pain, nausea, vomiting. : Negative increase frequency, dysuria, blood in urine or stool. MUSC: Negative for muscle aches, edema. SKIN: Negative rash, lesions/sores. NEURO: Negative headache, dizziness, weakness. Physical Exam Physical Exam: GENERAL APPEARANCE NAD, activity normal for age, well developed/ well nourished, no cyanosis, pallor, or diaphoresis. EYES lids/conjunctiva normal. EARS/NOSE/THROAT Mucous membranes moist, nares normal, lips/teeth normal uvula midline without oral pharyngeal erythema, exudate or swelling TMs normal bilaterally. No lymphangitis/lymphedema. HEAD/NECK normocephalic atraumatic, no facial trauma, neck is supple. RESPIRATORY respiratory effort normal, speaks in full sentences, no tripod position, no accessory muscle use. Lungs clear to auscultation without rhonchi, wheezes, rales CARDIAC Regular rate and rhythm, no edema. ABDOMINAL Soft, ND/NT. No evidence of fluid wave. No pulsatile masses on exam, rebound tenderness, Schafer sign or pain over Mcburney's point. MUSCLES/EXTREMITIES No abnormal range of motion, no swelling. SKIN Warm, pink and dry. No rashes, dermatoses, petechiae or lesions. NEUROLOGICAL Speech is clear and appropriate. Normal level of consciousness. Gait and coordination are normal. 5/5 strength in all extremities. PSYCH Normal mood and affect. Judgement/competence is appropriate Results & Data Results & Data Vital Signs (Past 12 Hours) Vital Signs Temp Pulse Resp BP Pulse Ox O2 Del Method 06/06/24 08:12 36.7 C 74 18 126/75 94 Room Air 06/05/24 23:07 18 PG Care Time/CCT Total # of Minutes Spent Total Time Spent with Patient: Total time spent is greater than 50% in coordination of care (as documented) at patient's floor/unit and/or counseling patient: Coding Level of Care Code 74557 SUB INP/OBS CARE 2/35MIN Diagnoses Ambulatory dysfunction R26.2 Closed right hip fracture S72.001A Fracture of left superior pubic ramus with routine healing S32.512D Fracture type: closed Elevated bilirubin R17 (3) Fracture of left superior pubic ramus with routine healing Fracture type: closed Qualified Code(s): S32.512D - Fracture of superior rim of left pubis, subsequent encounter for fracture with routine healing
--- NOTE | 2024-06-06 10:27 | Orthopedic Progress Note ---
Date of Service June 06, 2024 Assessment & Plan (1) Recurrent falls: (2) Closed right hip fracture: (3) Fracture of left superior pubic ramus with routine healing: (4) Degenerative disc disease, lumbar: (5) Bilateral sacroiliitis: (6) Stroke-like symptom: (7) Grief reaction: (8) Anxiety: (9) Vitamin D deficiency: (10) Hypertension: (11) PAF (paroxysmal atrial fibrillation): Plan I was called to the patient's bedside by the patient's daughter to once again discuss management with regards to her hip. In summation, Misty is an 79-year-old female who presented to the hospital primarily for ambulatory dysfunction. the patient is demented and as such the patient's daughter filled in with regards the history. Initially, the patient fell around [place] time and had x-rays taken in outside facility which were read as no acute fracture. I have reviewed these x-rays and do suspect that this is the time when the patient sustained insufficiency fractures of her pubic ramus, however on thorough evaluation of these films, I do not see any evidence of intertrochanteric hip fracture. Reportedly, the patient fell again at the end of last week, and has been unable to ambulate since that time. Upon presentation to the emergency department, x- rays, CT scan, MRI of the right hip and pelvis were obtained and personally interpreted and reviewed. These demonstrate subacute fractures of the pubic ramus likely sustained at the end of March, and suggestion of a more acute right intertrochanteric hip fracture that is nondisplaced. Despite this, the patient did not have much pain with logroll or with heel strike which is surprising to me. Noting this fracture on x-rays, I am very concerned of the potential for displacement in the future, and as such I have recommended surgical stabilization of the patient's right hip with a cephalomedullary nail. The patient's daughter and the patient were both quite hesitant initially about this because she seems to be in no pain in her right hip, however the patient's ability to contribute to history gathering is obviously limited due to her mentation. They requested last evening to think about this and again some more time this morning. I explained to them that I think we have 2 options moving forward. One option would be for stabilization of the right intertrochanteric region of the femur in case this does represent an acute fracture. I explained to the patient's daughter that there are risks associated with surgery including but not limited to loss of life/limb, DVT, incomplete relief of pain, nonunion, malunion, hardware, cage, hardware failure. But I explained that the benefit of this would be to ensure that the hip is stabilized to allow the patient to more safely and comfortably bear weight. The second option would be for trial of ambulation with repeat radiographs to ensure no fracture displacement of her right hip. I did explain that if the fracture does displace, this could make close reduction more challenging and may need open reduction, however considering the patient had no known recent falls, her imaging findings may represent a subacute fracture that is healing and has been stable while the patient has been walking. In no uncertain terms, I explained that my recommendation is for surgical stabilization of the patient's right hip As a painful right hip fracture can prevent mobilization and carries with it significant risks of immobilization such as but not limited to pneumonia, DVT, sacral decubitus ulcers. The patient's daughter had time to think about it, and she would like to trial nonoperative management first. In light of this, the patient can eat today and she should work with physical therapy to see how much weight she can bear on her right lower extremity. If this is significantly challenging to her, this may represent the acute nature of the fracture, and still my recommendation would be for cephalomedullary nailing of the right hip. Additionally, on repeat radiographs if further fracture displacement is noted, I will once again recommend surgical stabilization of the right hip. I did also explain to the patient and her daughter that I will be out of town at the end of this week and next week for a conference, so depending on the t iming of their decision making, this case may need to be passed to another orthopedic surgeon. They expressed understanding. Admission and Anticipated Discharge Date Admission Date: June 05, 2024 Orthopedic Progress Note Called the patient's bedside to discuss family's wishes with regards to management of the patient's right intertrochanteric hip fracture (3) Fracture of left superior pubic ramus with routine healing Fracture type: closed Qualified Code(s): S32.512D - Fracture of superior rim of left pubis, subsequent encounter for fracture with routine healing (4) Degenerative disc disease, lumbar Disc-related pain type: discogenic back pain only Qualified Code(s): M51.360 - Other intervertebral disc degeneration, lumbar region with discogenic back pain only
[2024-06-06 10:35] LABS: Albumin Globulin Ratio 1.3 (0.9-2); Albumin Level 3.5 gm/dl (3.4-5.0); BUN Creatinine Ratio 36.2 (10-20); Calcium 9.2 mg/dl (8.6-10.3); Creatinine Clr Calc Pharmacy 89.1 ml/min; Globulin 2.6 gm/dl (2.5-4.0); Potassium 4.1 mmol/L (3.5-5.1); Total Protein 6.1 gm/dl (6.0-8.3)
--- NOTE | 2024-06-06 15:48 | XRay Report ---
XR hip RT 2V w pelvis CLINICAL HISTORY: s/p ambulation right hip pain after recent fall COMPARISON: Prior CT scan and MRI of the pelvis dated 06/05/2024 FINDINGS: 4 total views were obtained of the pelvis and right hip. The known left pubic bone fractur e is redemonstrated. I am unable to confirm with confidence and intertrochanteric fracture of the pro ximal right femur. Recommend clinical correlation and continued follow-up over a longer time frame. T here is mild degenerative change at the right hip joint. IMPRESSION: No definite proximal right femoral fracture identified. Recommend clinical correlation an d follow-up radiography or follow-up CT as warranted.. ACT 112: Negative or not required by law. Electronically signed by: Remedios Tracy M.D. 06/06/2024 3:46 PM
--- NOTE | 2024-06-06 20:51 | Orthopedic Progress Note ---
Date of Service June 06, 2024 Assessment & Plan (1) Recurrent falls: (2) Closed right hip fracture: (3) Fracture of left superior pubic ramus with routine healing: (4) Degenerative disc disease, lumbar: (5) Bilateral sacroiliitis: (6) Stroke-like symptom: (7) Grief reaction: (8) Anxiety: (9) Vitamin D deficiency: (10) Hypertension: (11) PAF (paroxysmal atrial fibrillation): Plan I represented to the patient's room this evening following operative cases. Additionally, the patient has attempted ambulation with physical therapy. She had repeat radiographs. These do not demonstrate any displacement of the intertrochanteric hip fracture, but I explained to the patient and her daughter that I am still quite adamant recommending surgery. The patient was not lucid enough to participate in this conversation and she demanded that I leave her room. As such, I called the patient's daughter and discussed in great detail with her again the entirety of the patient's care. My main reason for recommending surgical management is that the patient did certainly have a pubic ramus fracture on x-rays taken 04/11, and since that time up until last week, the patient was able to ambulate without pain. Only recently, has the patient been unable to ambulate, so this is why I am suspicious that her imaging studies do represent an acute intertrochanteric hip fracture on the right hip. The patient's daughter is still unsure as to how she would like to proceed, and like to revisit this again tomorrow. I will do everything my power to visit the patient while the daughter is present so that we can have the same discussion again, but I did explain to them once again that as I am leaving town at the end of this week for a conference, tomorrow is the last day that I be able to do this for them, if they do opt for surgical management or an additional opinion, a different orthopedic surgeon may be required to perform this case for her. In no uncertain terms, I explained that my recommendation is for surgical stabilization of the patient's right hip As a painful right hip fracture can prevent mobilization and carries with it significant risks of immobilization such as but not limited to pneumonia, DVT, sacral decubitus ulcers. The patient's daughter had time to think about it, and she would like to trial nonoperative management first. In light of this, the patient can eat today and she should work with physical therapy to see how much weight she can bear on her right lower extremity. If this is significantly challenging to her, this may represent the acute nature of the fracture, and still my recommendation would be for cephalomedullary nailing of the right hip. Additionally, on repeat radiographs if further fracture displacement is noted, I will once again recommend surgical stabilization of the right hip. Please keep the patient n.p.o. after midnight tonight in case she does opt for operative management. Admission and Anticipated Discharge Date Admission Date: June 05, 2024 (3) Fracture of left superior pubic ramus with routine healing Fracture type: closed Qualified Code(s): S32.512D - Fracture of superior rim of left pubis, subsequent encounter for fracture with routine healing (4) Degenerative disc disease, lumbar Disc-related pain type: discogenic back pain only Qualified Code(s): M51.360 - Other intervertebral disc degeneration, lumbar region with discogenic back pain only
[2024-06-06] MEDS: HYDROCODONE/ACETAMOPHEN 5/325MG TAB PO PRN (21:50)
--- NOTE | 2024-06-07 10:15 | Orthopedic Progress Note ---
Date of Service June 07, 2024 Assessment & Plan (1) Recurrent falls: (2) Closed right hip fracture: (3) Fracture of left superior pubic ramus with routine healing: (4) Degenerative disc disease, lumbar: (5) Bilateral sacroiliitis: (6) Stroke-like symptom: (7) Grief reaction: (8) Anxiety: (9) Vitamin D deficiency: (10) Hypertension: (11) PAF (paroxysmal atrial fibrillation): Plan I represented to the patient's room this morning. She has now attempted ambulation with physical therapy multiple times. She had repeat radiographs last night after attempted mobilization These do not demonstrate any displacement of the intertrochanteric hip fracture, but I explained to the patient and her daughter that I am still quite adamant in recommending surgery. The patient was not lucid enough to participate in this conversation and she demanded that I leave her room. As such, I discussed with the patient's daughter in the hallway. The daughter recognizes that her mother is in pain with attempted ambulation on the right lower extremity. My reasoning for recommending surgical management is that the patient did certainly have a pubic ramus fracture on x-rays taken 04/11, and since that time up until last week, the patient was able to ambulate without pain. Only recently, has the patient been unable to ambulate, so this is why I am suspicious that her imaging studies do represent an acute intertrochanteric hip fracture on the right hip. Additionally when attempting ambulation with therapy, she is limited most by her right hip which is suggestive that this does represent a true intertrochanteric hip fracture. The patients daughter has requested an additional opinion and Dr Marion has been contacted. I will also call him and discuss the patients care with him. In no uncertain terms, I explained that my recommendation is for surgical stabilization of the patient's right hip As a painful right hip fracture can prevent mobilization and carries with it significant risks of immobilization such as but not limited to pneumonia, DVT, sacral decubitus ulcers. Admission and Anticipated Discharge Date Admission Date: June 05, 2024 Subjective patient remains delirious this morning. is currently working with therapy attempting mobilization and still having trouble with the right lower extremity. Review of Systems Review of Systems: Unable to be obtained secondary to patient cognition Physical Exam Physical Exam: On physical examination of the patient's pelvis and right lower extremity, she has negative heel strike and negative logroll test. She does have some pain to palpation along her superior pubic ramus and at her right hip. She denies any groin pain with hip range of motion. (3) Fracture of left superior pubic ramus with routine healing Fracture type: closed Qualified Code(s): S32.512D - Fracture of superior rim of left pubis, subsequent encounter for fracture with routine healing (4) Degenerative disc disease, lumbar Disc-related pain type: discogenic back pain only Qualified Code(s): M51.360 - Other intervertebral disc degeneration, lumbar region with discogenic back pain only
--- NOTE | 2024-06-07 10:32 | Hospitalist Progress Note ---
Date of Service June 07, 2024 Assessment & Plan (1) Ambulatory dysfunction: Plan: -closed R hip fx/fx L superior pubic ramus - daughter leaning towards conservative measure with repeat Xrays -requesting 2nd opinion by Dr. Marion, consulted (2) Closed right hip fracture: Plan: -ortho following -pain control (3) Fracture of left superior pubic ramus with routine healing: Plan: -ortho following -pain control (4) Elevated bilirubin: Plan 79-year-old female PMHx DDD of the lumbar region, anxiety, depression, vitamin D deficiency, HTN, and PAF on apixaban presenting to ED from [facility] for AMS, back pain, and abdominal pain. Patient is demented so history is limited, but cordell campoverde provides the history that she is aware of. Increased amount of falls started in late March, daughter states that since Jun 02, increased difficulty with ambulating. Since then, more difficulties with ambulating. Labs revealed no evidence of infection, sodium 135, BUN/creatinine ratio 30.4, total bilirubin 3.1 with alkaline phosphatase 122. Hip pelvis x-ray bilateral is comminuted, displaced fracture of the medial left pubic bone, acute to subacute and findings also suggestive of subacute healing nondisplaced intratrochanteric fracture of the R femur. CTAP sclerosis within intertrochanteric portion of R femur suggestive of subacute healing nondisplaced fracture, comminuted mildly displaced medial L pubic bone fracture with adjacent bone fragment/callus formation subacute or subacute, no additional acute findings. Pending official pelvis MRI read. Admission and Anticipated Discharge Date Admission Date: June 05, 2024 Subjective patient still delirious this. Review of Systems Review of Systems: CONST: Negative for fever, body aches and chills. HENT: Negative for neck pain/stiffness, headache, congestion, sore throat, swelling. EYES: Negative for discharge/pain or vision changes. RESP: Negative for cough/hemoptysis and shortness of breath. CV: Negative chest pain, difficulty breathing, palpitations. ABD: Negative pain, nausea, vomiting. : Negative increase frequency, dysuria, blood in urine or stool. MUSC: Negative for muscle aches, edema. SKIN: Negative rash, lesions/sores. NEURO: Negative headache, dizziness, weakness. Physical Exam Physical Exam: GENERAL APPEARANCE NAD, activity normal for age, well developed/ well nourished, no cyanosis, pallor, or diaphoresis. EYES lids/conjunctiva normal. EARS/NOSE/THROAT Mucous membranes moist, nares normal, lips/teeth normal uvula midline without oral pharyngeal erythema, exudate or swelling TMs normal bilaterally. No lymphangitis/lymphedema. HEAD/NECK normocephalic atraumatic, no facial trauma, neck is supple. RESPIRATORY respiratory effort normal, speaks in full sentences, no tripod position, no accessory muscle use. Lungs clear to auscultation without rhonchi, wheezes, rales CARDIAC Regular rate and rhythm, no edema. ABDOMINAL Soft, ND/NT. No evidence of fluid wave. No pulsatile masses on exam, rebound tenderness, Schafer sign or pain over Mcburney's point. MUSCLES/EXTREMITIES No abnormal range of motion, no swelling. SKIN Warm, pink and dry. No rashes, dermatoses, petechiae or lesions. NEUROLOGICAL Speech is clear and appropriate. Normal level of consciousness. Gait and coordination are normal. 5/5 strength in all extremities. PSYCH Normal mood and affect. Judgement/competence is appropriate PG Care Time/CCT Total # of Minutes Spent Total Time Spent with Patient: Total time spent is greater than 50% in coordination of care (as documented) at patient's floor/unit and/or counseling patient: Coding Level of Care Code 98390 SUB INP/OBS CARE 2/35MIN Diagnoses Ambulatory dysfunction R26.2 Closed right hip fracture S72.001A Fracture of left superior pubic ramus with routine healing S32.512D Fracture type: closed Elevated bilirubin R17 (3) Fracture of left superior pubic ramus with routine healing Fracture type: closed Qualified Code(s): S32.512D - Fracture of superior rim of left pubis, subsequent encounter for fracture with routine healing
[2024-06-07 15:18] VITALS: RESP 18
--- NOTE | 2024-06-07 16:01 | Orthopedic Consultation ---
Date of Service June 07, 2024 Assessment & Plan (1) Fracture of left superior pubic ramus with routine healing: She was seen and examined by Dr. Marion today. He discussed operative vs nonoperative management for this. There is no obvious intertroch fx on imaging at this time and exam at this time is not consistent with a hip fracture. Dr Marion recommended nonoperative management for this. She can weight bear as tolerated. If it does become more obvious over time that she does have a hip fracture then certainly surgery is still an option. We recommend follow up as outpatient in 2-4 weeks. History of Present Illness Reason for Consultation: . Requesting Physician: . Attending Physician: Wilbert العراقي MD .Misty is a 79 year old patient admitted with ambulatory dysfunction and diagnosed with left pubic rami fractures and questionable right intertroch fracture. She was seen by Dr. Colon from [facility] and a second opinion was requested by her daughter with Dr. Marion. She complains of pain across the pelvic region and low back. She does go to pain clinic. She had xrays, ct and MRI Allergies Allergy/AdvReac Type Severity Reaction Status Date / Time Penicillins Allergy Mild HIVES Verified 05/30/24 11:28 Home Medications Medication Instructions Recorded Confirmed Type cholecalciferol (vitamin D3) 50 2,000 unit PO DAILY 05/23/20 06/05/24 History mcg (2,000 unit) capsule apixaban 5 mg tablet (Eliquis) 5 mg PO BID #180 tabs 05/25/22 06/05/24 Rx flecainide 100 mg tablet 100 mg PO BID 05/06/24 06/05/24 History metoprolol succinate 25 mg 12.5 mg PO DAILY 05/06/24 06/05/24 History tablet,extended release 24 hr (Toprol XL) hydrocodone 5 mg-acetaminophen 325 1 tab PO Q6H PRN Pain 05/18/24 06/05/24 History mg tablet lorazepam 0.5 mg tablet 0.5 mg PO DAILY PRN Other 06/05/24 06/05/24 History Past Med/Surg History Problem List Recurrent falls (Acute) Closed right hip fracture (Acute) Ambulatory dysfunction (Acute) Fracture of left superior pubic ramus with routine healing (Acute) Closed right hip fracture Degenerative disc disease, lumbar Bilateral sacroiliitis Stroke-like symptom (Acute) Recurrent falls Elevated bilirubin Stroke-like symptoms Fracture of metatarsal of right foot, closed (Acute) Fracture of triquetral bone of right wrist (Acute) Hypertrophic toenail Bilateral ankle pain Grief reaction Anxiety Labelle disease Hypertension Vitamin D deficiency Insomnia Thrombocytopenia Enlarged thyroid Thyroid Nodule PAF (paroxysmal atrial fibrillation) Diastolic dysfunction Degenerative arthritis of right knee Medical History Facial droop Surgical History History of repair of rotator cuff History of knee replacement History of foot surgery History of cataract surgery Family History Father Myocardial infarction Mother Alcohol abuse Father Cardiac disorder Myocardial infarction Family/Other Breast cancer Heart disease Denies family history of Ovarian cancer Prostate cancer Colorectal cancer Social History Smoking Status: Former smoker Tobacco Type: Cigarettes Age Started Using Tobacco: 15; Age Quit Using Tobacco: 35; packs per day: 0.5; Cigarettes Per Day: 10; Second Hand Exposure: No; Do You Dip or Chew Tobacco: No; Hx Alcohol Use: No Hx Substance Use: No Preferred Language: Portuguese Communication Ability: Effective Visual Impairment: No Limitations Hearing Ability: Normal Audio Visual Engineer Required: No Beliefs That Will Affect Care: None marital status: / Current Living Situation: Personal Care Facility Current Living Situation Comment: [facility] current occupational status: retired current occupation: was a homemaker Feels Safe at Home: Yes Childhood Exposure to Second-Hand Smoke: Yes Diet: regular Dental Care, Regularly: Yes Physical Activity Frequency: Does not Exercise Seatbelt Use: always Sunscreen Use: Yes Assistive Devices: Cane and Walker Review of Systems All systems reviewed & are unremarkable except as noted in HPI & below. Physical Exam .alert, NAD. She is able to move herself in bed without obvious pain. She can do a straight leg raise and range of motion of the right hip without groin or thigh pain. She does get some pain in the left pelvis area. Results & Data Results & Data Laboratory Results . Diagnostic Findings . xrays of the her pelvis and hip show left superior and inferior pubic rami fractures. MRI and ct scan again demonstrate the rami fractures but no obvious hip fracture. PG Care Time/CCT Total # of Minutes Spent Total Time Spent with Patient: Total time spent is greater than 50% in coordination of care (as documented) at patient's floor/unit and/or counseling patient: Coding Level of Care Code 01175 IN/OBS CONSULT LVL 3,45M Diagnoses Fracture of left superior pubic ramus with routine healing S32.512D Fracture type: closed (1) Fracture of left superior pubic ramus with routine healing Fracture type: closed Qualified Code(s): S32.512D - Fracture of superior rim of left pubis, subsequent encounter for fracture with routine healing
[2024-06-07 19:10] VITALS: O2SAT 95
[2024-06-07] MEDS: MELATONIN 3 MG TAB PO PRN (20:07)
[2024-06-08 07:22] VITALS: BP 148/79; PULSE 72; TEMP 97.3
--- NOTE | 2024-06-08 11:51 | Discharge Summary ---
Discharge Summary Date of Service June 08, 2024 Principal Dx & Hospital Course #1 = Principal Diagnosis (1) Ambulatory dysfunction: -closed R hip fx/fx L superior pubic ramus - daughter leaning towards conservative measure with repeat Xrays -requesting 2nd opinion by Dr. Marion, consulted -Pt agreeing to have conservative management and will be discharged to rehab 06/08 (2) Closed right hip fracture: -ortho following -pain control (3) Fracture of left superior pubic ramus with routine healing: -ortho following -pain control (4) Elevated bilirubin: Plan 79-year-old female PMHx DDD of the lumbar region, anxiety, depression, vitamin D deficiency, HTN, and PAF on apixaban presenting to ED from [facility] for AMS, back pain, and abdominal pain. Patient is demented so history is limited, but daughter provides the history that she is aware of. Increased amount of falls started in late March, daughter states that since Jun 02, increased diffic ulty with ambulating. Since then, more difficulties with ambulating. Labs revealed no evidence of infection, sodium 135, BUN/creatinine ratio 30.4, total bilirubin 3.1 with alkaline phosphatase 122. Hip pelvis x-ray bilateral is comminuted, displaced fracture of the medial left pubic bone, acute to subacute and findings also suggestive of subacute healing nondisplaced intratrochanteric fracture of the R femur. CTAP sclerosis within intertrochanteric portion of R femur suggestive of subacute healing nondisplaced fracture, comminuted mildly displaced medial L pubic bone fracture with adjacent bone fragment/callus formation subacute or subacute, no additional acute findings. Pending official pelvis MRI read. Admission HPI Per Admitting Provider 79-year-old female PMHx DDD of the lumbar region, anxiety, depression, vitamin D deficiency, HTN, and PAF on apixaban presenting to ED from [facility] for AMS, back pain, and abdominal pain. Patient is demented so history is limited, but daughter provides the history that she is aware of. Increased amount of falls started in late March, daughter states that since Jun 02, increased difficulty with ambulating. Since then, more difficulties with ambulating. Decided to come to hospital today for abdominal pain mainly at LLQ, radiating to groin. Patient feels that when she is trying to sit upright, the pain is more noticeable. Has been unable to get herself to walk to the bathroom or stand independently. States that she has had multiple falls in the past, 3 of which she remembers but the fourth 1 he states that "no one can remember where I fell." Patient is unable to qualify the severity of pain, but she states that it was excruciating at the time of onset. No associated symptoms of N/V/D/C. Does have occasional constipation. Denies fever/chills, chest pain, SOB, palpitation, LUTS, or numbness/tingling. ED evaluation reveals no evidence of infection, sodium of 135, BUN/creatinine 30.4, total bilirubin 3.1, and alkaline phosphatase 122. Lipase was WNL. UA pending. BioFire negative. Hip pelvis x- ray bilateral is comminuted, displaced fracture of the medial left pubic bone, acute to subacute and findings also suggestive of subacute healing nondisplaced intratrochanteric fracture of the R femur. CTAP sclerosis within intertr ochanteric portion of R femur suggestive of subacute healing nondisplaced fracture, comminuted mildly displaced medial L pubic bone fracture with adjacent bone fragment/callus formation subacute or subacute, no additional acute findings. Pending official pelvis MRI read. Provided with NSS 500 mL, lorazepam 0.5 mg, and acetaminophen [address] see [address] Marion's attestation for adjustments/additions to treatment plan. Discharge Exam GENERAL APPEARANCE NAD, activity normal for age, well developed/ well nourished, no cyanosis, pallor, or diaphoresis. EYES lids/conjunctiva normal. EARS/NOSE/THROAT Mucous membranes moist, nares normal, lips/teeth normal uvula midline without oral pharyngeal erythema, exudat e or swelling TMs normal bilaterally. No lymphangitis/lymphedema. HEAD/NECK normocephalic atraumatic, no facial trauma, neck is supple. RESPIRATORY respiratory effort normal, speaks in full sentences, no tripod position, no accessory muscle use. Lungs clear to auscultation without rhonchi, wheezes, rales CARDIAC Regular rate and rhythm, no edema. ABDOMINAL Soft, ND/NT. No evidence of fluid wave. No pulsatile masses on exam, rebound tenderness, Schafer sign or pain over Mcburney's point. MUSCLES/EXTREMITIES No abnormal range of motion, no swelling. SKIN Warm, pink and dry. No rashes, dermatoses, petechiae or lesions. NEUROLOGICAL Speech is clear and appropriate. Normal level of consciousness. Gait and coordination are normal. 5/5 strength in all extremities. PSYCH Normal mood and affect. Judgement/competence is appropriate Discharge Plan Discharge Items Patient Disposition: Transfer Inpatient Rehab Fac Reason For Visit: AMBULATORY DYSFUNCTION Discharge Diagnosis: hip fracture Activity: Resume your previous activity Non-emergency contact: Primary Care Provider Call non-emergency contact if: you have any medication questions Follow-up/Referrals: Aamir Chris MD [Primary Care Provider] - Diet: Regular Addtl Attending Provider Instructions: Follow up with ortho in 2 weeks Pending Studies at Discharge: No Stand-Alone Forms: My [facility] Skilled Items Patient informed of condition?: Yes DNR: No Discharge Level of Care: Acute rehab Communicable Disease: No Discharge Prognosis: Stable Lines: None Urinary Catheter: No Medications and DC Order Prescriptions: New acetaminophen 325 mg Tablet 650 mg PO Q4H PRN (Reason: pain) Qty: 60 0RF Continued hydrocodone-acetaminophen 5-325 mg tablet 1 tab PO Q6H PRN (Reason: Pain) Eliquis 5 mg tablet 5 mg PO BID Qty: 180 3RF cholecalciferol (vitamin D3) 50 mcg (2,000 unit) capsule 2,000 unit PO DAILY flecainide 100 mg tablet 100 mg PO BID metoprolol succinate [Toprol XL] 25 mg tablet extended release 24 hr 12.5 mg PO DAILY lorazepam 0.5 mg tablet 0.5 mg PO DAILY PRN (Reason: Other) Discharge Orders: Discharge Order (Routine); Ordered 06/08/24 Ordered By: Wilbert العراقي Admission Data Admit Date/Time: 06/05/24 19:35 Attending Provider: Wilbert العراقي Admit Provider: Elba Marion Primary Care Provider: Aamir Chris Other Providers: Elba Marion; [facility]isca Ovalles; Stephane Marion Hospital Stay Data Consultations 06/05/24 19:19 ED Decision to Admit Stat 06/07/24 10:29 Consult Orthopedic Surgery Routine Diagnostic Imagining Performed 06/05/24 11:12 CT abd pelvis IV con only Stat 06/05/24 15:44 MRI Pelvis [MR pelvis wo con] Stat Pending Results Patient Have Any Pending Studies at Discharge: No Discharge Instructions Given to Patient (Per Discharging Provider) Follow up with ortho in 2 weeks Total Time Total Time Spent Total Time Spent (In Minutes): 50 Coding Level of Care Code 07307 INP/OBS DISCH >30 MIN Diagnoses Ambulatory dysfunction R26.2 Closed right hip fracture S72.001A Fracture of left superior pubic ramus with routine healing S32.512D Fracture type: closed Elevated bilirubin R17
== END 2024-06-08 14:35 | DRG 561 ==
LOC: ED 10:37 → SUATTDRO 19:35 → 3W 19:35